=== PATIENT | male | born 1960 | race Caucasian/White ===

== ENCOUNTER 2020-05-11 05:59 | Emergency (ER) | payer MEDICAID, SELFPAY ==
[2020-05-11 06:00] VITALS: BP 198/112; PULSE 119; RESP 18; TEMP 36.1; O2SAT 97; BMI 31.7
--- NOTE | 2020-05-11 06:01 | ED.VIS.GEN ---
History of Present Illness Chief Complaint: Dental Informant: Patient Narrative: 1-year-old male presenting with left-sided dental pain as well as some slight swelling on the left mandible. He states that he has had dental pain on and off but the swelling just started today. He is unable to sleep. He has no difficulty swallowing. He has no difficulty breathing. He states his tongue is not swollen. He denies fever or chills. He said he had this happen to him in the past and had his teeth removed in the emergency room. Past Medical History - Allergies and Home Meds Allergies/Adverse Reactions: Allergies No Known Allergies Allergy (Verified 05/18/16 03:46) Primary Care Physician: NOT,DEFINED [Primary Care Provider] - Prior records reviewed: Yes Lives: Alone Smoking Status: Current every day smoker Drugs: None Review of Systems General: Denies: Chills, Fever Eyes: Denies: Visual changes - bilaterally, Diplopia ENT: Reports: - - Left sided dental pain on the lower mandible with slight facial swelling Respiratory: Denies: Dyspnea, Cough Gastrointestinal: Denies: Abdominal pain, Nausea Musculoskeletal: Denies: Myalgias, Arthralgias Skin: Denies: Rash Neurological: Denies: Headache, Weakness Psych: Denies: Depression Physical Exam General: No Acute Distress Head: - ENT: - - Tenderness to palpation over the left mandible. There is no fluctuant mass. Patient is partially edentulous with multiple dental caries of the remaining teeth. There is no gingival abscess.. Negative for: Nasal congestion, Sinus tenderness Cardiovascular: Negative for: Regular rate Respiratory: Negative for: No distress Skin: - - Sided facial swelling around the left mandible without cellulitis Neurological: Alert, Oriented x3 Psychological: Normal affect Diagnostic/Tx/Re-eval - Medical Decision Making Presents with dental pain and slight left-sided facial swelling. He has no systemic signs or symptoms. There is no sublingual edema. Tongue is not swollen. He has no airway issues or difficulty swallowing. I will start him on Augmentin. He was given a first dose in the ED as well as Decadron and oxycodone. Patient is given return precautions and encouraged to follow-up with a dental professional. Impression: 1. Dental abscess 2. Multiple dental caries 3. Left-sided mandibular swelling ED Disposition - Plan for ED Patient: Instructions: ED CAVITY Dental, ED ABSCESS DENTAL Prescriptions: Amoxicillin/Potassium Clav [Augmentin 875-125 Tablet] 1 ea PO BID #20 tab Prescription Printed Naproxen [Naprosyn] 500 mg PO BID #20 tab Prescription Printed Oxycodone HCl/Acetaminophen [Percocet 5/325] 1 tab PO Q6H PRN PRN 3 Days #12 tab PRN Reason: pain Prescription Printed Referrals: NOT,DEFINED [Primary Care Provider] -
[2020-05-11] MEDS: oxyCODONE 5 MG Tablet PO (06:16)
[2020-05-11] MEDS: dexAMETHasone 10 MG/ML Vial PO.IVFORM (06:17)
[2020-05-11] MEDS: Amox/Clavulanate 875 MG Tablet PO (06:17)
[2020-05-11 06:37] VITALS: BP 178/100
== END 2020-05-11 06:38 | disposition home or self-care (01) ==
LOC: ED 06:26
PROVIDERS: Emergency Provider Student in an Organized Health Care Education/Training Program
DX: K04.7 Periapical abscess without sinus (principal); K02.9 Dental caries, unspecified; F17.200 Nicotine dependence, unspecified, uncomplicated
CPT/HCPCS: 99282

== ENCOUNTER 2022-08-31 07:48 | Inpatient (IN) | payer MEDICAID, SELFPAY ==
[2022-08-31] VITALS (14 sets, daily range): BP systolic 107–149; BP diastolic 75–106; PULSE 90–131; RESP 17–28; TEMP 36.2–36.7; O2SAT 92–98; BMI 30.4; BMI 26.9
--- NOTE | 2022-08-31 09:07 | EKG12_ITS ---
Test Reason : Blood Pressure : / mmHG Vent. Rate : 118 BPM Atrial Rate : 119 BPM P-R Int : 000 ms QRS Dur : 080 ms QT Int : 320 ms P-R-T Axes : 000 022 043 degrees QTc Int : 448 ms Atrial fibrillation Septal infarct , age undetermined Abnormal ECG Confirmed by RONIT ALVAREZ MD ([id number]), development editor CHELA WHITT ([id number]) on 09/05/2022 11:44:27 AM Referred By: ROSALINA Confirmed By:RONIT ALVAREZ MD
--- NOTE | 2022-08-31 09:09 | EDS_ITS ---
HPI History of Present Illness Chief Complaint: Shortness of Breath Informant: patient Onset/Context/Timing Onset: Weeks (2 weeks) Context: Gradual Onset Current Severity: Mild Maximum Severity: Moderate Narrative Narrative: Patient presents with 2-week history of shortness of breath. He reports mild cough with clear to yellow-colored sputum production. No fever or chills. No chest pain. He states last night he was unable to lay down to sleep and that is what caused him to come in today. He states he has not seen a doctor in about 2 0 years. He is a smoker but is never been diagnosed with asthma or COPD. PFSH PFSH Medical History no medical history no medical history Home Medications NK 08/31/22 [History Last Taken Unknown] Allergy/AdvReac Type Severity Reaction Status Date / Time No Known Allergies Allergy Verified 08/31/22 07:50 Surgical History no surgical history Social History Smoking Status: Current every day smoker tobacco type: cigarettes ROS ROS ED Constitutional Constitutional ED: Denies chills or fever(s) Eyes Eyes: Denies change in vision or discharge from eye(s) ENT ENT ED: Denies discharge from eye(s), rhinorrhea or sore throat Cardiovascular Cardiovascular: Denies chest pain or palpitations Respiratory/Chest Respiratory/Chest: Reports cough, dyspnea and sputum Gastrointestinal Gastrointestinal: Denies abdominal pain, diarrhea, nausea or vomiting Genitourinary Genitourinary ED: Denies dysuria Musculoskeletal Musculoskeletal: Denies back pain or extremity pain Integumentary Denies Abrasions or rash Neurologic Neurologic: Denies headache(s) or weakness Allergic/Immunologic Allergic/Immunologic ED: Denies lip swelling or urticaria EXAM Physical Exam Const Vital Signs: 08/31/22 07:48 08/31/22 09:19 08/31/22 09:19 Temperature 97.1 F L Temperature Source Temporal Pulse Rate 128 H 131 H Respiratory Rate 18 28 H Respiratory Effort Short of Breath Labored Respiratory Pattern Tachypnea Blood Pressure 149/106 H Blood Pressure Mean 120 Pulse Ox 92 93 Oxygen Delivery Method Room Air Room Air Room Air Positive well nourished and well developed General Appearance ED: well developed HEENT Reports normocephalic and head/scalp atraumatic Eyes PERRL and EOMs intact bilaterally Neck supple Chest Wall inspection of chest normal and palpation of chest normal Resp normal respiratory effort and clear to auscultation bilaterally Cardio Rate: tachycardic Rhythm: abnormal rhythm irregularly irregular GI normal to inspection, nondistended, normoactive bowel sounds Palpation: soft Extremity normal to inspection Neuro oriented x3 and no sensory deficits noted Sensorium / Orientation: alert Motor Exam: strength 5/5 throughout Psych mental status grossly normal Skin no rashes or lesions noted MDM MDM MDM Narrative Medical decision making narrative: EKG, chest x-ray, lab work obtained. Lab Data Attestation: I reviewed the patient's lab results. Labs: Laboratory Results - last 24 hr 08/31/22 08/31/22 08/31/22 09:20 09:20 09:20 WBC 11.3 H RBC 4.60 Hgb 14.5 Hct 44.5 MCV 96.7 H MCH 31.5 MCHC 32.6 RDW Std Deviation 49.1 H RDW Coeff of Doron 13.8 Plt Count 222 MPV 10.0 Immature Gran % (Auto) 0.300 Neut % (Auto) 54.6 Lymph % (Auto) 31.7 [place] % (Auto) 10.4 H Eos % (Auto) 2.1 Baso % (Auto) 0.9 Absolute Neuts (auto) 6.2 Absolute Lymphs (auto) 3.59 Nucleated RBC % 0 Sodium 140 Potassium 4.0 Chloride 110 H Carbon Dioxide 23.0 Anion Gap 7 BUN 15 Creatinine 0.84 Estim Creat Clear Calc 87.08 Est GFR (MDRD) Af Amer 119 Est GFR (MDRD) Non-Af 98 BUN/Creatinine Ratio 17.9 Glucose 99 Calcium 8.9 Troponin I High Sens 31 B-Natriuretic Peptide 130.0 H TSH < 0.01 L Radiography Chest X-Ray - ED: 1 View, Read by ED Physician and CHF Diagnostic Testing: Clinical Impression(s) from Imaging Studies Chest X-Ray 08/31/22 09:30 IMPRESSION: Findings suspicious for pulmonary edema possible trace left effusion and atelectasis. Electronically Signed: Kristen Dunn MD at 9:44 EST , EKG Initial EKG: Attestation: I personally reviewed and interpreted this EKG as follows: Interpretation: Atrial Fibrillation (Atrial fibrillation with a ventricular rate of 118.) Treatment and Re-Evaluation Narrative: EKG obtained reveals atrial fibrillation. Patient has no known history of A. fib. Heart rate is increased into the 140s. He is given 10 mg of IV Cardizem. CBC reveals a white count 11.3. Chemistry studies unremarkable with normal renal function. Troponin is 31, BNP is 130, TSH is less than 0.01. T3 and free T4 have been added. Patient has been given a dose of Lasix. Heart rate remains between 118 and 135. He is given 20 mg of Cardizem at this time as well. Test results are discussed with the patient. I advised him that we will need to admit him to the hospital to get his symptoms improved. I will speak with the hospitalist. I will give him a dose of Lovenox at this time. Discharge Plan Triage Chief Complaint: Shortness of Breath ED Provider: Joyce Marcano Dx/Rx/DC Orders Clinical Impression: Atrial fibrillation with rapid ventricular response, New onset a-fib, Hyperthyroidism determined by thyroid function test, CHF (congestive heart failure) Prescriptions: No Action NK Primary Care Provider: Care Physician,No Primary Referrals: Care Physician,No Primary [Primary Care Provider] - Disposition Disposition: Acute Care Hospital [facility]
--- NOTE | 2022-08-31 09:30 | RAD_ITS ---
STUDY: X-RAY CHEST REASON FOR EXAM: Male, 62 years old. Sob TECHNIQUE: Single AP portable view of the chest. COMPARISON: None. FINDINGS: The interstitial markings are mildly prominent. There is a pattern of fine linear interstitial markings in the right greater than left lung periphery. There is blunting of the left costophrenic angle. There is no demonstrated pleural abnormality. Normal size heart. Normal mediastinum and corazon. Normal visualized pulmonary arteries. Normal visualized aortic arch and descending thoracic aorta. There are diffuse degenerative changes of the visualized thoracic spine. Normal visualized ribs, clavicles, and shoulders. There is no demonstrated abnormality of the visualized soft tissue structures of the upper abdomen. RAD/Chest 1 View (Portable) IMPRESSION: Findings suspicious for pulmonary edema possible trace left effusion and atelectasis. Electronically Signed: Kristen Dunn MD at 9:44 EST ,
[2022-08-31 09:31] LABS: Absolute Lymphocyte Count 3.59 X10^3/uL (0.83-4.51); Absolute Neutrophil Count 6.2 X10^3/uL (2.0-7.7); Basophil% 0.9 % (0-1); Eosinophil# 0.24 X10^3/uL; Eosinophils% 2.1 % (0-5); Hematocrit 44.5 % (40-54); Hemoglobin 14.5 g/dL (13.0-16.5); Lymphocyte # 3.59 X10^3/ul (0.83-4.51); Lymphocyte % 31.7 % (19-41); Mean Corp Hgb Conc 32.6 g/dL (32-36); Mean Corpuscular Hgb 31.5 pg (27.0-32.0); Mean Corpuscular Volume 96.7 fL (80-94); Monocyte# 1.18 X10^3/uL; Monocyte% 10.4 % (0-10); NRBC Flagged by Analyzer 0 % (0-5); Neutrophil # 6.19 X10^3/uL (2.7-7.7); Neutrophil % 54.6 % (47-70); Platelet Count 222 K/mm3 (150-450); RBC Distribution Width CV 13.8 % (11.6-14.6); RBC Distribution Width SD 49.1 fl (35.1-43.9); White Blood Count 11.3 K/mm3 (4.4-11.0)
[2022-08-31] MEDS: Furosemide 40 MG/4 ML Vial IV ×2 (09:53→18:19)
[2022-08-31] MEDS: dilTIAZem 25 MG/5 ML Vial 10 MG IV BOLUS (09:53)
[2022-08-31 09:58] LABS: Anion Gap 7 (5-15); BUN 15 mg/dL (7-18); BUN/Creat Ratio 17.9 RATIO (10-20); Calcium,Total 8.9 mg/dL (8.5-10.1); Chloride 110 mmol/L (98-107); Creatinine, Serum 0.84 mg/dL (0.70-1.30); EST Glomerular Filtration Rate 98 mL/min (>60); Est Glom Filt Rate - Afr Amer 119 mL/min (>60); Estimated Creatinine Clearance 87.08 ml/min; Glucose 99 mg/dL (74-106); Sodium Level 140 mmol/L (136-145); Thyroid Stim Hormone (TSH) < 0.01 uIU/mL (0.358-3.74); Troponin-I HS 31 pg/mL (3.0-78.0)
[2022-08-31] MEDS: dilTIAZem 25 MG/5 ML Vial 20 MG IV BOLUS (10:14)
[2022-08-31] MEDS: Enoxaparin 100 MG/ML Syringe 90 MG SC (10:24)
--- NOTE | 2022-08-31 10:36 | PCM.HP.STD ---
HPI - General General Date of Admission: 08/31/22 Date of Service: 08/31/22 Chief Complaint: Shortness of breath -few days HPI Narrative JOANNE ZHU, is a 62 M who presents with the above. Patient denies any significant past medical history. He is a chronic smoker, has not seen a doctor in more than 20 years. He comes in with complaints of shortness of breath, orthopnea and PND. He denied leg swelling or weight gain or weight loss. He denied any fever or chills or upper respiratory symptoms. He also denied any palpitations or chest pain. In the emergency room, his blood pressure was 149/106, heart rate was 128, respiratory rate 18, temperature 97.1, oxygen sats 92% on room air. WBC count is 11.3, hemoglobin 14.5, platelet count 222, sodium is 140, potassium 4.0, chloride is 110, bicarbonate 23, BUN 15, creatinine 0.84, BNP up is 130, TSH 0.01, free T4 2.89, total T3 is 2.20. Chest X-ray is suspicious for pulmonary edema, trace left effusion and atelectasis. [facility] Medical History no medical history Home Medications NK 08/31/22 [History Last Taken Unknown] Allergy/AdvReac Type Severity Reaction Status Date / Time No Known Allergies Allergy Verified 08/31/22 07:50 Family History (Updated 08/31/22 @ 15:[address] Laina Mayes MD) Mother CVA (cerebral vascular accident) Father CAD (coronary artery disease) Myocardial infarction Sudden cardiac Surgical History no surgical history no surgical history Social History (Updated 08/31/22 @ 15:[address] Laina Mayes MD) household members: significant other Smoking Status: Current every day smoker tobacco type: cigarettes Electronic Cigarette Use: with nicotine alcohol intake: never substance use type: does not use ROS ROS Narrative Constitutional: Denies: Anorexia, Chills, Fever, Night Sweats, Weight Change Eyes: Denies: Blurred vision, Cataracts, Conjunctivae Inflammation, Pain, Redness, Vision Change HEENT: Denies: Difficulty Hearing, Difficulty Swallowing, Head Aches, Hearing Changes, Sinus Congestion, Sinus Drainage Cardiovascular: See HPI Respiratory: See HPI Gastrointestinal: Denies: Abdominal Pain, Nausea, Vomiting Genitourinary: Denies: Dysuria Musculoskeletal: Denies: Joint Pain, Joint stiffness, Joint swelling, Joint Tenderness Skin: Denies: Rash, Wounds Neurological: Denies: Numbness, Tingling, Focal weakness Vital Signs Vital Signs Vital Signs: 08/31/22 07:48 08/31/22 09:19 08/31/22 09:19 Temperature 97.1 F L Temperature Source Temporal Pulse Rate 128 H 131 H Respiratory Rate 18 28 H Respiratory Effort Short of Breath Labored Respiratory Pattern Tachypnea Blood Pressure 149/106 H Blood Pressure Mean 120 Pulse Ox 92 93 Oxygen Delivery Method Room Air Room Air Room Air Weight Weight: 90.718 kg Body Mass Index (BMI) 30.4 Physical Exam Narrative Physical exam: General: Alert, Oriented x3, Cooperative, on 2 L of oxygen HEENT: Atraumatic Oral: Moist Mucosa Neck: Supple Lungs: Diminished to auscultation Cardiovascular: HS I+II, irregular, no murmurs Abdomen: Bowel Sounds Present, Soft, Non Tender Extremities: No edema, no bilateral edema, clubbing of his fingers Skin: No rashes, No breakdown Neurological: Grossly intact Psych/Mental Status: Appropriate Results Lab / Micro Data Result Diagrams: 08/31/22 09:20 08/31/22 09:20 Labs: Laboratory Results - last 24 hr 08/31/22 09:20: WBC 11.3 H, RBC 4.60, Hgb 14.5, Hct 44.5, MCV 96.7 H, MCH 31.5, MCHC 32.6, RDW Std Deviation 49.1 H, RDW Coeff of Doron 13.8, Plt Count 222, MPV 10.0, Immature Gran % (Auto) 0.300, Neut % (Auto) 54.6, Lymph % (Auto) 31.7, [place] % (Auto) 10.4 H, Eos % (Auto) 2.1, Baso % (Auto) 0.9, Absolute Neuts (auto) 6.2, Absolute Lymphs (auto) 3.59, Nucleated RBC % 0 08/31/22 09:20: Sodium 140, Potassium 4.0, Chloride 110 H, Carbon Dioxide 23.0, Anion Gap 7, BUN 15, Creatinine 0.84, Estim Creat Clear Calc 87.08, Est GFR (MDRD) Af Amer 119, Est GFR (MDRD) Non-Af 98, BUN/Creatinine Ratio 17.9, Glucose 99, Calcium 8.9, Troponin I High Sens 31, TSH < 0.01 L 08/31/22 09:20: B-Natriuretic Peptide 130.0 H Radiology Impression Chest X-Ray 08/31/22 09:30 IMPRESSION: Findings suspicious for pulmonary edema possible trace left effusion and atelectasis. Electronically Signed: Kristen Dunn MD at 9:44 EST , Assessment & Plan Assessment/Plan (1) Atrial fibrillation with rapid ventricular response: (2) New onset a-fib: (3) Hyperthyroidism determined by thyroid function test: PLAN: Plan 1. A. fib with RVR secondary to hyperthyroidism, newly diagnosed [id number] score is 0 Patient received Cardizem bolus, will continue metoprolol 50 mg p.o. twice daily, aspirin 81 mg 2. Acute hypoxia secondary to probable acute CHF Patient is on 2 L of oxygen Chest x-ray shows pulmonary edema Continue on Lasix 40 mg IV twice daily, encourage use of incentive spirometer 3. Hyperthyroidism, newly diagnosed, patient presented TSH less than 0.01, elevated free T4 and free T3 This is a cause of his atrial fibrillation; discussed with endocrinology, will start patient on methimazole 40 mg p.o. daily Patient to follow-up with endocrinology in the outpatient 4. Nicotine dependence, continue on replacement 5. DVT prophylaxis?Lovenox subcu Charges/Coding Visit Charges Inpatient E&M: 00319 Subs Hosp L3
[2022-08-31 10:51] LABS: T4 Free Direct 2.89 ng/dL (0.76-1.46)
--- NOTE | 2022-08-31 11:41 | ECHOD_ITS ---
Reason For Study: afib Procedure This was a 2D Doppler, Color Flow transthoracic echocardiogram. Exam performed portable in patient room. Left Ventricle Normal LV size. The estimated ejection fraction is 45 %. No regional wall motion abnormalities noted. Right Ventricle Normal RV size. Normal systolic function. Atria Normal left atrium. Normal right atrium. Mitral Valve There is moderate mitral annular calcification. Mild-Moderate (1-2+) eccentric mitral valve insufficiency. Tricuspid Valve Normal tricuspid valve. Mild (1+) tricuspid valve insufficiency. Pulmonary artery systolic pressure is 26 mmHg. Aortic Valve Trisinus/trileaflet aortic valve. Great Vessels Normal aortic root. The pulmonary artery is normal size. Normal inferior vena cava. Pericardium/Pleural No pericardial effusion. Moderate size left pleural effusion. MMode/2D Measurements & Calculations LVIDd: 4.2 cm IVSd: 1.4 cm Ao root diam: 3.5 cm LVIDs: 3.6 cm LVPWd: 1.0 cm RVDd: 3.7 cm FS: 14.5 % LAV(MOD-bp): 71.0 ml LVAd ap4: 25.9 cm2 SV(MOD-sp4): 36.9 ml LAV(MOD-bp) Indexed: 34.7 ml/m2 LVLd ap4: 7.5 cm LAV(MOD-sp2): 98.0 ml EDV(MOD-sp4): 76.3 ml LAV(MOD-sp4): 51.0 ml EDV(sp4-el): 75.4 ml LVAs ap4: 16.8 cm2 LVLs ap4: 6.3 cm ESV(MOD-sp4): 39.4 ml ESV(sp4-el): 38.2 ml EF(MOD-sp4): 48.4 % EF(sp4-el): 49.4 % SV(sp4-el): 37.2 ml LA dimension(2D): 4.6 cm LA A4 area: 20.0 cm2 RA A4 area: 21.6 cm2 Doppler Measurements & Calculations MV E max [place]: 116.8 cm/sec MV V2 max: 134.5 cm/sec Ao V2 max: 116.3 cm/sec MV max P.3 mmHg Ao max P.6 mmHg MV V2 mean: 89.6 cm/sec Ao V2 mean: 74.3 cm/sec MV mean P.7 mmHg Ao mean P.7 mmHg MV V2 VTI: 25.2 cm Ao V2 VTI: 16.1 cm LV V1 max: 109.9 cm/sec MR max [place]: 504.0 cm/sec PA V2 max: 87.6 cm/sec LV V1 max P.0 mmHg MR max P.6 mmHg PA V2 mean: 60.0 cm/sec LV V1 mean P.6 mmHg LV V1 mean: 73.2 cm/sec LV V1 VTI: 14.8 cm TR max [place]: 238.7 cm/sec TR max P.8 mmHg ECHO/Echo Complete Interpretation Summary Normal LV size. The estimated ejection fraction is 45 %. There is moderate mitral annular calcification. Mild-Moderate (1-2+) eccentric mitral valve insufficiency. Pulmonary artery systolic pressure is 26 mmHg. The global longitudinal strain is moderately abnormal. The global longitudinal strain = -14.2% (abnormal). Ordering Physician: Laina Mayes Referring Physician: RADHA PCP Performed By: Jaymie Workman RCS
[2022-08-31 12:05] LABS: Magnesium 2.1 mg/dL (1.6-2.6)
[2022-08-31] MEDS: Metoprolol Tartrate 50 MG Tablet PO ×2 (13:06→21:40)
[2022-08-31] MEDS: Methimazole 5 MG Tablet 40 MG PO (15:51)
[2022-08-31] MEDS: 0.9% Saline Lock 10 ML Syringe IV (18:19)
--- NOTE | 2022-08-31 23:04 | NURSING ---
This RN viewed charting
[2022-09-01 03:10] VITALS: BP 103/72; PULSE 95; RESP 18; TEMP 36.7; O2SAT 98
[2022-09-01 03:36] VITALS: PULSE 94
[2022-09-01 05:41] LABS: Absolute Lymphocyte Count 5.37 X10^3/uL (0.83-4.51); Absolute Neutrophil Count 5.4 X10^3/uL (2.0-7.7); Basophil# 0.13 X10^3/uL; Eosinophil# 0.25 X10^3/uL; Hematocrit 47.2 % (40-54); Hemoglobin 15.6 g/dL (13.0-16.5); Lymphocyte # 5.37 X10^3/ul (0.83-4.51); Lymphocyte % 42.8 % (19-41); Mean Corp Hgb Conc 33.1 g/dL (32-36); Mean Corpuscular Hgb 32.2 pg (27.0-32.0); Mean Corpuscular Volume 97.5 fL (80-94); Mean Platelet Vol. 10.3 fl (6.2-12.0); Monocyte% 11.2 % (0-10); NRBC Flagged by Analyzer 0 % (0-5); Neutrophil # 5.37 X10^3/uL (2.7-7.7); Neutrophil % 42.8 % (47-70); POSITIVE DIFFERENTIAL YES; POSITIVE MORPHOLOGY YES; Platelet Count 255 K/mm3 (150-450); RBC Distribution Width CV 13.6 % (11.6-14.6); RBC Distribution Width SD 49.1 fl (35.1-43.9); Red Blood Count 4.84 M/mm3 (4.6-6.2); White Blood Count 12.5 K/mm3 (4.4-11.0)
[2022-09-01 06:12] LABS: Differential Indicated SCAN CRITERIA MET
[2022-09-01 06:26] LABS: ALB/GLOB Ratio 0.6 RATIO (0.9-2.4); AST(SGOT) 14 U/L (15-37); Alanine Aminotransfer ALT/SGPT 17 U/L (16-61); Alkaline Phosphatase 176 U/L (45-117); Anion Gap 5 (5-15); BUN 20 mg/dL (7-18); BUN/Creat Ratio 18.2 RATIO (10-20); Calcium,Total 9.4 mg/dL (8.5-10.1); Chloride 105 mmol/L (98-107); EST Glomerular Filtration Rate 72 mL/min (>60); Est Glom Filt Rate - Afr Amer 87 mL/min (>60); Globulin 4.9 g/dL (2.2-4.2); Glucose 88 mg/dL (74-106); Potassium 4.1 mmol/L (3.5-5.1); Protein, Total 7.9 g/dL (6.4-8.2); Sodium Level 140 mmol/L (136-145)
[2022-09-01 06:28] LABS: Differential Comment SCANNED; Reactive Lymphocyte 1+
[2022-09-01 07:00] VITALS: PULSE 94
[2022-09-01 10:00] VITALS: BP 118/81; PULSE 95; RESP 16; TEMP 36.6; O2SAT 97
[2022-09-01 10:02] VITALS: O2SAT 96; O2SAT 97
--- NOTE | 2022-09-01 10:58 | DS.PCM_ITS ---
Providers Date of Admission: 08/31/22 Date of Discharge: 09/01/22 Primary Care Physician: No Primary Care Phys Reason For Visit: AFIB WITH RVR Diagnosis Discharge Diagnosis (1) Atrial fibrillation with rapid ventricular response: Status: Acute Code(s): I48.91 - Unspecified atrial fibrillation (2) New onset a-fib: Status: Acute Code(s): I48.91 - Unspecified atrial fibrillation (3) Hyperthyroidism determined by thyroid function test: Status: Acute Code(s): E05.90 - Thyrotoxicosis, unspecified without thyrotoxic crisis or storm; R94.6 - Abnormal results of thyroid function studies Plan 1. A. fib with RVR secondary to hyperthyroidism 2. Acute hypoxia secondary to probable acute CHF 3. Hyperthyroidism, newly diagnosed 4. Nicotine dependence Medications at Discharge Home Medications aspirin 81 mg chewable tablet 81 mg PO BREAKFAST 30 days #30 tabs 09/01/22 furosemide 20 mg tablet (Lasix) 20 mg PO DAILY 30 days #30 tabs 09/01/22 methimazole 5 mg tablet 40 mg PO DAILY 6 days #48 tabs 09/01/22 metoprolol tartrate 50 mg tablet 50 mg PO BID 30 days #60 tabs 09/01/22 nicotine 21 mg/24 hr daily transdermal patch 21 mg transdermal DAILY 14 days #14 ea 09/01/22 Hospital Course Operations None Procedures 2-D Echocardiogram Summary of Care Provided Minutes Spent on Discharge: 35 Hospital Course: 62 M with no significant past medical history.? He has not seen a doctor in more than 10 years. He is a chronic smoker. Patient comes in with complaints of shortness of breath, orthopnea and PND.? He denied leg swelling or weight gain or weight loss.? He denied any fever or chills or upper respiratory symptoms.? He also denied any palpitations or chest pain. In the emergency room, his blood pressure was 149/106, heart rate was 128, respiratory rate 18, temperature 97.1, oxygen sats 92% on room air.? EKG showed A. fib with RVR. WBC count is 11.3, hemoglobin 14.5, platelet count 222, sodium is 140, potassium 4.0, chloride is 110, bicarbonate 23, BUN 15, creatinine 0.84, BNP up is 130, TSH 0.01, free T4 2.89, total T3 is 2.20. Chest X-ray is suspicious for pulmonary edema, trace left effusion and atelectasis. Patient was admitted to the progressive care unit and managed as acute A. fib with RVR, acute CHF, unclear EF, hyperthyroidism. Patient received Cardizem bolus in the ED and was continue metoprolol 50 mg p.o. twice daily. His [id number] score was 0. He was kept on aspirin. Patient also did receive Lasix as he was on 2 L of oxygen. He improved and was off oxygen at time of discharge. Patient was also started on methimazole 40 mg daily. Discussed with endocrinology, patient will follow-up with Dr. Osorio on Friday 08/10 8. He was recommended to keep that appointment. He was given a list of primary care doctors to choose from at time of discharge. He was also recommended to follow-up with cardiology within 2 weeks. He was strongly recommended to stop smoking. He was given nicotine patches at discharge. Physical Exam Narrative Physical exam: General: Alert, Oriented x3, Cooperative, on 2 L of oxygen HEENT: Atraumatic Oral: Moist Mucosa Neck: Supple Lungs: Diminished to auscultation Cardiovascular: HS I+II, irregular, no murmurs Abdomen: Bowel Sounds Present, Soft, Non Tender Extremities: No edema, no bilateral edema, clubbing of his fingers Skin: No rashes, No breakdown Neurological: Grossly intact Psych/Mental Status: Appropriate Weight / BMI Weight Weight: 80.4 kg Body Mass Index (BMI) 26.9 ABG / Lab / Microbiology Data Result Diagrams: 09/01/22 05:05 09/01/22 05:05 Laboratory: Laboratory Results - last 24 hr 08/31/22 10:15: Magnesium 2.1 09/01/22 05:05: WBC 12.5 H, RBC 4.84, Hgb 15.6, Hct 47.2, MCV 97.5 H, MCH 32.2 H , MCHC 33.1, RDW Std Deviation 49.1 H, RDW Coeff of [place]on 13.6, Plt Count 255, MPV 10.3, Immature Gran % (Auto) 0.200, Neut % (Auto) 42.8 L, Lymph % (Auto) 42.8 H, [place] % (Auto) 11.2 H, Eos % (Auto) 2.0, Baso % (Auto) 1.0, Absolute Neuts (auto) 5.4, Absolute Lymphs (auto) 5.37 H, Nucleated RBC % 0, Differential Comment SCANNED, Reactive Lymphocytes 1+ 09/01/22 05:05: Sodium 140, Potassium 4.1, Chloride 105, Carbon Dioxide 30.0, Anion Gap 5, BUN 20 H, Creatinine 1.10, Estim Creat Clear Calc 66.50, Est GFR (MDRD) Af Amer 87, Est GFR (MDRD) Non-Af 72, BUN/Creatinine Ratio 18.2, Glucose 88, Calcium 9.4, Total Bilirubin 2.00 H, AST 14 L, ALT 17, Alkaline Phosphatase 176 H, Total Protein 7.9, Albumin 3.0 L, Globulin 4.9 H, Albumin/Globulin Ratio 0.6 L Radiography Diagnostic Testing: Radiology Impression Echocardiogram 08/31/22 11:41 Interpretation Summary Normal LV size. The estimated ejection fraction is 45 %. There is moderate mitral annular calcification. Mild-Moderate (1-2+) eccentric mitral valve insufficiency. Pulmonary artery systolic pressure is 26 mmHg. The global longitudinal strain is moderately abnormal. The global longitudinal strain = -14.2% (abnormal). Ordering Physician: Laina Mayes Referring Physician: MONICA PCP Performed By: Jaymie Workman RCS D/C Instructions Discharge Diet: 2000 mg Sodium Diet Meaningful Use Info Meaningful Use Diagnoses (Choose all that apply): None applicable Discharge Plan Admission Admit Date/Time: 08/31/22 10:27 Primary Reason for Your Visit: Afib with RVR/Hyperthyroidism Attending Provider: Laina Mayes Primary Care Provider: Care Physician,Monica Primary Instructions Additional Instructions / Restrictions: Take note of your medications Follow-up with a primary care doctor within 1 week. Follow-up with endocrinology as scheduled You are strongly advised to quit smoking. Continue on a low sodium diet Discharge Orders/Prescriptions Prescriptions: New metoprolol tartrate 50 mg Tablet 50 mg PO BID 30 Days Qty: 60 0RF nicotine 21 mg/24 hr Patch 24 Hour 21 mg transdermal DAILY 14 Days Qty: 14 0RF methimazole 5 mg Tablet 40 mg PO DAILY 6 Days Qty: 48 0RF aspirin 81 mg Tablet,Chewable 81 mg PO BREAKFAST 30 Days Qty: 30 0RF furosemide [Lasix] 20 mg tablet 20 mg PO DAILY 30 Days Qty: 30 0RF Referrals / Follow Up: Ronen Cason MD [Med Staff - Active Staff] - Within 2 Weeks Dejuan Osorio MD [Med Staff - Courtesy Staff] - 09/05/22 3:00 pm Care Physician,No Primary [Primary Care Provider] - Disposition Disposition (needs filled in before D/C Order can be placed): Home, Self Care Charges/Coding Visit Charges Inpatient E&M: 81155 Disch Hosp
[2022-09-01] MEDS: Aspirin 81 MG TAB.CHEW PO (11:09)
[2022-09-01] MEDS: FLU VACC QS2022-23(6MOS UP)/PF 60 MCG/0.5 ML SYRINGE IM (11:09)
[2022-09-01 11:11] VITALS: BP 118/81; PULSE 95
[2022-09-01] MEDS: Metoprolol Tartrate 50 MG Tablet PO (11:11)
[2022-09-01] MEDS: Enoxaparin 40 MG/0.4 ML Syringe SC (11:11)
[2022-09-01] MEDS: Methimazole 5 MG Tablet 40 MG PO (11:12)
== END 2022-09-01 12:55 | disposition home or self-care (01) | DRG 201 ==
LOC: ED 10:16 → PCU 10:50
PROVIDERS: Admitting Provider Internal Medicine; Emergency Provider Emergency Medicine; Visit Provider Internal Medicine
DX: I48.91 Unspecified atrial fibrillation (principal); I50.21 Acute systolic (congestive) heart failure; E05.90 Thyrotoxicosis, unspecified without thyrotoxic crisis or storm; F17.210 Nicotine dependence, cigarettes, uncomplicated; R09.02 Hypoxemia; Z23 Encounter for immunization; Z79.82 Long term (current) use of aspirin
CPT/HCPCS: 36415; 71045; 80048; 80053; 83735; 83880; 84439; 84443; 84480; 84484; 85025; 93005; 93306; 97802; 99285; 99406; 90686; A4216; J1940

== ENCOUNTER 2022-11-12 19:03 | Emergency (ER) | payer MEDICAID, SELFPAY ==
[2022-11-12 19:04] VITALS: BP 142/106; PULSE 80; RESP 14; TEMP 36.2; O2SAT 97; BMI 29.6
--- NOTE | 2022-11-12 19:25 | EKG12_ITS ---
Test Reason : HEART PALP Blood Pressure : / mmHG Vent. Rate : 128 BPM Atrial Rate : 000 BPM P-R Int : 000 ms QRS Dur : 074 ms QT Int : 298 ms P-R-T Axes : 000 011 059 degrees QTc Int : 435 ms Atrial fibrillation with rapid ventricular response Septal infarct , age undetermined Abnormal ECG Confirmed by ANTONIO ALMEIDA, RONIT ([id number]), photography editor CHELA WHITT ([id number]) on 11/14/2022 1:14:33 PM Referred By: BB Confirmed By:RONIT ALVAREZ MD
--- NOTE | 2022-11-12 19:25 | EDS_ITS ---
HPI History of Present Illness Chief Complaint: Palpitations Informant: patient Onset/Context/Timing Onset: Yesterday Context: Sudden Onset Timing: Continuous Quality: Short of breath Current Severity: Mild Maximum Severity: Moderate Worsened by: Exertion Relieved by: Remaining still Associated Symptoms Associated Symptoms: No chest pain, palpitations, lightheadedness or near syncope/syncope Narrative Narrative: Patient presents with same symptoms that he had a couple months ago when he was diagnosed with A. fib. He does not feel his heart racing or skipping. He was admitted to the hospital and started on 3 or 4 medications, he states he ran out of all of those 1 week ago, and admits that he has followed up with no one. He continues to smoke. He does not use any other drugs or alcohol. He has had no fevers or chills but he has a persistent productive cough. [facility] Medical History (Updated 11/12/22 @ 22:[address] Vicente Hollins MD) Hyperthyroidism determined by thyroid function test New onset a-fib Home Medications aspirin 81 mg chewable tablet 81 mg PO BREAKFAST 30 days #30 tabs 09/01/22 [Rx Last Taken Unknown] nicotine 21 mg/24 hr daily transdermal patch 21 mg transdermal DAILY 14 days #14 ea 09/01/22 [Rx Last Taken Unknown] furosemide 20 mg tablet (Lasix) 20 mg PO DAILY 30 days #30 tabs 11/12/22 [Rx Last Taken Unknown] metoprolol tartrate 50 mg tablet 50 mg PO BID 30 days #60 tabs 11/12/22 [Rx Last Taken Unknown] Allergy/AdvReac Type Severity Reaction Status Date / Time No Known Allergies Allergy Verified 11/12/22 19:04 Family History (Updated 08/31/22 @ 15:[address] Laina Mayes MD) Mother CVA (cerebral vascular accident) Father CAD (coronary artery disease) Myocardial infarction Sudden cardiac Social History household members: significant other Smoking Status: Current every day smoker tobacco type: cigarettes Electronic Cigarette Use: with nicotine alcohol intake: never substance use type: does not use ROS ROS ED Constitutional Constitutional ED: Denies chills or fever(s) Eyes Eyes: Denies change in vision or diplopia ENT ENT ED: Denies rhinorrhea or sore throat Cardiovascular Cardiovascular: Denies chest pain, leg edema, lightheadedness, orthopnea, palpitations or paroxysmal nocturnal dyspnea Respiratory/Chest Respiratory/Chest: Reports cough, dyspnea and sputum; Denies orthopnea or paroxysmal nocturnal dyspnea Gastrointestinal Gastrointestinal: Denies abdominal pain, diarrhea, nausea or vomiting Genitourinary Genitourinary ED: Denies dysuria or hematuria Musculoskeletal Musculoskeletal: Denies back pain or neck pain Integumentary Denies abscess or rash Neurologic Neurologic: Denies headache(s), paresthesias or weakness Psychiatric Psychiatric: Denies anxiety or suicidal thoughts EXAM Physical Exam Const Vital Signs: 11/12/22 19:04 11/12/22 20:00 11/12/22 20:03 Temperature 97.2 F L Temperature Source Temporal Pulse Rate 80 129 H 121 H Respiratory Rate 14 27 H 25 H Blood Pressure 142/106 H 140/65 H 166/111 H Blood Pressure Mean 118 90 129 Pulse Ox 97 95 93 Oxygen Delivery Method Room Air Room Air Room Air 11/12/22 20:05 Temperature Temperature Source Pulse Rate 112 H Respiratory Rate Blood Pressure Blood Pressure Mean Pulse Ox Oxygen Delivery Method Positive well nourished and well developed General Appearance ED: well developed and NAD HEENT Reports moist mucous membranes normocephalic and atraumatic Eyes PERRL and EOMs intact bilaterally Neck full ROM and supple Resp normal respiratory effort and clear to auscultation bilaterally Cardio no murmurs Rate: tachycardic Rhythm: abnormal rhythm irregularly irregular GI non-tender and non-distended Auscultation: normoactive bowel sounds Palpation: soft Back/Spine no CVA tenderness General Back: other FROM Extremity normal to inspection, full ROM, no calf tenderness and no pedal edema General Extremety ED: Negative for edema, pulses abnormal or tenderness General Extremity: Negative for edema or pulses abnormal Neuro oriented x3, CN's II-XII intact bilaterally, no sensory deficits noted and gait normal Sensorium / Orientation: awake and alert Motor Exam: strength 5/5 throughout Skin no rashes or lesions noted and no wounds MDM MDM MDM Narrative Medical decision making narrative: While working the patient up, I gave him IV and p.o. metoprolol, which te mporarily helped control his rate and he states when that was the case, his dyspnea was resolved. However he became more tachycardic subsequently, and dyspneic again. His two-view chest x-ray on my interpretation shows interstitial abnormalities in both bases. Radiology interpretation was reviewed, states that this was vascular congestion versus pneumonia. His EKG does show rapid A. fib without an acute injury pattern and his troponin is negative, the rest of his labs are unremarkable except for a mild leukocytosis without a leftward shift to suggest infection. Given all this I added a dose of Cardizem 20 mg IV in addition to adding a BNP. I reviewed the patient's echocardiogram which was performed at an earlier date at this hospital, this past August. He had an ejection fraction of 45% in the ER along with normal LV size. Therefore I additionally treated the patient with IV Lasix given the appearance of his chest x-ray/congestion. His BNP returned elevated but just barely at 164. He is not in florid congestive heart failure. We ambulated him, he did not desat below 90% on room air. He did feel little dyspneic, but he is feeling better. I offered admission he declines and prefers to go home on his medications if that is okay, it is okay with me. His blood pressures controlled down 140s systolic, the last number I saw was 138. He is advised again to follow-up, he understands. It appears according to notes that I read from his recent hospital admission and discharge that he was diagnosed with hyperthyroidism and he was temporarily put on methimazole for that and advised to follow-up with endocrinology. He is not in thyroid storm right now nor does he have any other symptoms of hyperthyroidism acutely. Additionally, his [id number] score was 0, and they recommended aspirin and not anticoagulation for him. In addition to the medications he ran out of I am putting him on a few days of Lasix as well. Lab Data Attestation: I reviewed the patient's lab results. Labs: Laboratory Results - last 24 hr 11/12/22 11/12/22 11/12/22 19:35 19:35 19:35 WBC 11.4 H RBC 5.03 Hgb 15.8 Hct 47.2 MCV 93.8 MCH 31.4 MCHC 33.5 RDW Std Deviation 46.0 H RDW Coeff of Doron 13.6 Plt Count 215 MPV 9.5 Immature Gran % (Auto) 0.200 Neut % (Auto) 41.9 L Lymph % (Auto) 44.6 H [place] % (Auto) 10.6 H Eos % (Auto) 1.6 Baso % (Auto) 1.1 H Absolute Neuts (auto) 4.8 Absolute Lymphs (auto) 5.07 H Nucleated RBC % 0 Differential Comment SEE COMMENT Diff Path Review May foll Atypical Lymphocytes 1+ Reactive Lymphocytes 1+ Platelet Estimate ADEQUATE RBC Morphology N CHROM Anisocytosis RARE Macrocytosis RARE Sodium 141 Potassium 4.2 Chloride 108 H Carbon Dioxide 25.0 Anion Gap 8 BUN 19 H Creatinine 0.80 Estim Creat Clear Calc 91.44 Est GFR (MDRD) Af Amer 126 Est GFR (MDRD) Non-Af 104 BUN/Creatinine Ratio 23.8 H Glucose 96 Calcium 9.5 Troponin I High Sens 31 B-Natriuretic Peptide 163.9 H Radiography Diagnostic Testing: Clinical Impression(s) from Imaging Studies Chest X-Ray 11/12/22 19:53 IMPRESSION: Bibasilar airspace disease greater on the left on the right that may represent edema or pneumonia. Electronically Signed: Nikita Callahan MD at 20:15 EST , Rhythm Strip Rhythm Strip: A-fib Rate: 125 Ectopy: None EKG Initial EKG: Attestation: I personally reviewed and interpreted this EKG as follows: Interpretation: No Acute Injury Pattern and Atrial Fibrillation (w/ RVR 120s) Prior EKG tracings: available for review Prior: Unchanged Discharge Plan Triage Chief Complaint: Palpitations ED Provider: Vicente Hollins Dx/Rx/DC Orders Clinical Impression: Atrial fibrillation with RVR, CHF (congestive heart failure) Instructions: AFib Dc, ED Heart Failure, Congestive (CHF) Prescriptions: Continued nicotine 21 mg/24 hr Patch 24 Hour 21 mg transdermal DAILY 14 Days Qty: 14 0RF aspirin 81 mg Tablet,Chewable 81 mg PO BREAKFAST 30 Days Qty: 30 0RF metoprolol tartrate 50 mg Tablet 50 mg PO BID 30 Days Qty: 60 0RF furosemide [Lasix] 20 mg tablet 20 mg PO DAILY 30 Days Qty: 30 0RF Discontinued methimazole 5 mg Tablet 40 mg PO DAILY 6 Days Qty: 48 0RF Primary Care Provider: Care Physician,No Primary Referrals: Ronen Cason MD [Med Staff - Active Staff] - As soon as possible (call for appt) Dejuan Osorio MD [Med Staff - Courtesy Staff] - As soon as possible (call for appt) [facility] Physician,No Primary [Primary Care Provider] - Disposition Disposition: Home, Self Care
[2022-11-12 19:40] LABS: Absolute Lymphocyte Count 5.07 X10^3/uL (0.83-4.51); Absolute Neutrophil Count 4.8 X10^3/uL (2.0-7.7); Basophil# 0.12 X10^3/uL; Basophil% 1.1 % (0-1); Eosinophil# 0.18 X10^3/uL; Eosinophils% 1.6 % (0-5); Hematocrit 47.2 % (40-54); Hemoglobin 15.8 g/dL (13.0-16.5); Lymphocyte # 5.07 X10^3/ul (0.83-4.51); Lymphocyte % 44.6 % (19-41); Mean Corp Hgb Conc 33.5 g/dL (32-36); Mean Corpuscular Hgb 31.4 pg (27.0-32.0); Mean Corpuscular Volume 93.8 fL (80-94); Mean Platelet Vol. 9.5 fl (6.2-12.0); Monocyte# 1.21 X10^3/uL; Monocyte% 10.6 % (0-10); NRBC Flagged by Analyzer 0 % (0-5); Neutrophil # 4.77 X10^3/uL (2.7-7.7); Neutrophil % 41.9 % (47-70); POSITIVE DIFFERENTIAL YES; Platelet Count 215 K/mm3 (150-450); RBC Distribution Width CV 13.6 % (11.6-14.6); Red Blood Count 5.03 M/mm3 (4.6-6.2); White Blood Count 11.4 K/mm3 (4.4-11.0)
[2022-11-12 19:44] LABS: Differential Indicated SCAN CRITERIA MET
--- NOTE | 2022-11-12 19:53 | RAD_ITS ---
EXAM: XR CHEST, 2 VIEWS CLINICAL INDICATION: cough, sob; in Afib TECHNIQUE: Frontal and lateral views of the chest. This report was created using [employer] report generation technology. COMPARISON: 08/31/2022 FINDINGS: LUNGS AND PLEURAL SPACES: There is bilateral lower lobe airspace disease. There are interstitial opacities present. No pneumothorax. No effusion. HEART: Unremarkable. Cardiac silhouette not enlarged. MEDIASTINUM: Central airways and mediastinal contour are unremarkable. BONES/JOINTS: Unremarkable. SOFT TISSUES: Unremarkable. RAD/Chest PA and Lateral IMPRESSION: Bibasilar airspace disease greater on the left on the right that may represent edema or pneumonia. Electronically Signed: Nikita Callahan MD at 20:15 EST ,
[2022-11-12] MEDS: Metoprolol Tartrate 5 MG/5 ML Vial IV (19:59)
[2022-11-12 20:00] VITALS: BP 140/65; PULSE 129; RESP 27; O2SAT 95
[2022-11-12 20:01] LABS: Anion Gap 8 (5-15); BUN 19 mg/dL (7-18); BUN/Creat Ratio 23.8 RATIO (10-20); Calcium,Total 9.5 mg/dL (8.5-10.1); Chloride 108 mmol/L (98-107); EST Glomerular Filtration Rate 104 mL/min (>60); Est Glom Filt Rate - Afr Amer 126 mL/min (>60); Estimated Creatinine Clearance 91.44 ml/min; Glucose 96 mg/dL (74-106); Potassium 4.2 mmol/L (3.5-5.1); Sodium Level 141 mmol/L (136-145); Troponin-I HS 31 pg/mL (3.0-78.0)
[2022-11-12 20:03] VITALS: BP 166/111; PULSE 121; RESP 25; O2SAT 93
[2022-11-12] MEDS: Metoprolol Tartrate 50 MG Tablet PO (20:04)
[2022-11-12 20:05] VITALS: PULSE 112
[2022-11-12 20:17] LABS: Anisocytosis RARE; Atypical Lymphocyte 1+ %; Macrocytosis RARE; Platelet Estimate ADEQUATE (ADEQ); Reactive Lymphocyte 1+; Red Cell Morphology N CHROM NORMAL (NORM C&C)
[2022-11-12 22:00] VITALS: PULSE 82; RESP 22; O2SAT 95
[2022-11-12] MEDS: Furosemide 40 MG/4 ML Vial IV (22:16)
[2022-11-12] MEDS: dilTIAZem 25 MG/5 ML Vial 20 MG IV BOLUS (22:16)
[2022-11-12 22:36] LABS: BNP,B-Type NATRIURETIC PEPTIDE 163.9 pg/mL (0-100)
[2022-11-15 09:37] LABS: Pathologist Review Reviewed
== END 2022-11-12 23:22 | disposition home or self-care (01) ==
PROVIDERS: Emergency Provider Emergency Medicine; Visit Provider Emergency Medicine
DX: R06.00 Dyspnea, unspecified (principal); I50.9 Heart failure, unspecified; I48.91 Unspecified atrial fibrillation; F17.210 Nicotine dependence, cigarettes, uncomplicated; Z79.899 Other long term (current) drug therapy; R00.0 Tachycardia, unspecified; Z79.82 Long term (current) use of aspirin
CPT/HCPCS: 71046; 80048; 83880; 84484; 85025; 93005; 96374; 96375; 99284; A4216; J1940

== ENCOUNTER 2023-01-24 18:14 | Emergency (ER) | payer MEDICAID, SELFPAY ==
[2023-01-24 18:15] VITALS: BP 135/92; PULSE 100; RESP 40; TEMP 35.7; O2SAT 95; BMI 31.4
--- NOTE | 2023-01-24 18:18 | EKG12_ITS ---
Test Reason : SOB Blood Pressure : / mmHG Vent. Rate : 103 BPM Atrial Rate : 381 BPM P-R Int : 000 ms QRS Dur : 080 ms QT Int : 370 ms P-R-T Axes : 000 -27 048 degrees QTc Int : 484 ms Atrial flutter with variable A-V block Septal infarct , age undetermined Abnormal ECG Confirmed by ANTONIO ALMEIDA, RONIT ([id number]), web content editor CHELA WHITT ([id number]) on 01/30/2023 9:50:07 AM Referred By: JOSE Confirmed By:RONIT ALVAREZ MD
[2023-01-24 18:19] VITALS: RESP 16; O2SAT 95
[2023-01-24 18:20] VITALS: O2SAT 95
--- NOTE | 2023-01-24 18:25 | RAD_ITS ---
INDICATION: SOB EXAMINATION/TECHNIQUE: X-RAY - XR Chest 1 View COMPARISON: 11/12/2022. FINDINGS: LINES/DEVICES: None. LUNGS: No consolidation, edema or effusion. No pneumothorax. MEDIASTINUM AND CARDIOVASCULAR STRUCTURES: Cardiac silhouette not enlarged. Central airways and mediastinal contour are unremarkable. BONES AND SOFT TISSUES: Unremarkable. RAD/Chest 1 View (Portable) IMPRESSION: No radiographic evidence of acute cardiopulmonary disease. Electronically Signed: Marta Lima MD at 18:53 EDT Reading Location ID and State: [id number] / Tel , Service support ,
[2023-01-24 18:34] LABS: Absolute Lymphocyte Count 5.87 X10^3/uL (0.83-4.51); Absolute Neutrophil Count 5.6 X10^3/uL (2.0-7.7); Basophil# 0.12 X10^3/uL; Basophil% 0.9 % (0-1); Eosinophil# 0.25 X10^3/uL; Eosinophils% 1.9 % (0-5); Hematocrit 49.9 % (40-54); Hemoglobin 15.9 g/dL (13.0-16.5); Lymphocyte # 5.87 X10^3/ul (0.83-4.51); Lymphocyte % 45.3 % (19-41); Mean Corp Hgb Conc 31.9 g/dL (32-36); Mean Corpuscular Hgb 31.6 pg (27.0-32.0); Mean Corpuscular Volume 99.2 fL (80-94); Mean Platelet Vol. 9.8 fl (6.2-12.0); Monocyte# 1.13 X10^3/uL; Monocyte% 8.7 % (0-10); NRBC Flagged by Analyzer 0 % (0-5); Neutrophil # 5.55 X10^3/uL (2.7-7.7); POSITIVE DIFFERENTIAL YES; Platelet Count 227 K/mm3 (150-450); RBC Distribution Width CV 14.5 % (11.6-14.6); RBC Distribution Width SD 52.5 fl (35.1-43.9); Red Blood Count 5.03 M/mm3 (4.6-6.2)
[2023-01-24 18:35] LABS: Differential Indicated SCAN CRITERIA MET
[2023-01-24 18:48] LABS: Differential Comment SCANNED
[2023-01-24 18:49] LABS: Anion Gap 3 (5-15); BUN 22 mg/dL (7-18); BUN/Creat Ratio 18.2 RATIO (10-20); Calcium,Total 9.1 mg/dL (8.5-10.1); Chloride 107 mmol/L (98-107); Creatinine, Serum 1.21 mg/dL (0.70-1.30); EST Glomerular Filtration Rate 64 mL/min (>60); Est Glom Filt Rate - Afr Amer 78 mL/min (>60); Estimated Creatinine Clearance 60.45 ml/min; Glucose 105 mg/dL (74-106); Potassium 4.5 mmol/L (3.5-5.1); Sodium Level 135 mmol/L (136-145); Troponin-I HS 42 pg/mL (3.0-78.0)
--- NOTE | 2023-01-24 19:16 | EDS_ITS ---
HPI History of Present Illness Chief Complaint: Shortness of Breath Informant: patient Narrative Narrative: Presents requesting his medicines. He states he has been getting a little short of breath on occasion. He thinks this is because he has been out of his me dicines for about 2 weeks. He has an appointment coming up in about 3 weeks. He was diagnosed with atrial fibrillation he said just couple months ago but it looks like it was more back in August. He had a [id number] score of 0 so he was not started on blood thinners. He is on aspirin though. He states he feels fine now. He is not having chest pain at any time. Sometimes he gets mildly s hort of breath with exertion. But he feels good now. He does not want to come in the hospital and would not consider coming in the hospital he just wants his medicine so he can go and follow-up. Again, he is asymptomatic right now. [facility] Medical History Atrial fibrillation CHF (congestive heart failure) Hyperthyroidism Hyperthyroidism determined by thyroid function test New onset a-fib Palpitations Home Medications aspirin 81 mg chewable tablet 81 mg PO BREAKFAST 30 days #30 tabs 09/01/22 [Rx Last Taken Unknown] nicotine 21 mg/24 hr daily transdermal patch 21 mg transdermal DAILY 14 days #14 ea 09/01/22 [Rx Last Taken Unknown] furosemide 20 mg tablet (Lasix) 20 mg PO DAILY 30 days #30 tabs 11/12/22 [Rx Last Taken Unknown] metoprolol tartrate 50 mg tablet 50 mg PO BID 30 days #60 tabs 11/12/22 [Rx Last Taken Unknown] aspirin 81 mg chewable tablet (Velasquez Chewable Low Dose Aspirin) 81 mg PO DAILY #30 tabs 01/24/23 [Rx Last Taken Unknown] furosemide 20 mg tablet (Lasix) 20 mg PO DAILY #30 tabs 01/24/23 [Rx Last Taken Unknown] metoprolol tartrate 50 mg tablet 50 mg PO BID #60 tabs 01/24/23 [Rx Last Taken Unknown] Allergy/AdvReac Type Severity Reaction Status Date / Time No Known Allergies Allergy Verified 01/24/23 18:14 Family History Mother CVA (cerebral vascular accident) Father CAD (coronary artery disease) Myocardial infarction Sudden cardiac Social History household members: significant other Smoking Status: Current every day smoker tobacco type: cigarettes Electronic Cigarette Use: with nicotine alcohol intake: never substance use type: does not use ROS ROS ED Constitutional Constitutional ED: Denies fever(s) Eyes Eyes: Denies change in vision ENT ENT ED: Denies rhinorrhea or sore throat Cardiovascular Cardiovascular: Reports racing heartbeat; Denies chest pain or palpitations Respiratory/Chest Respiratory/Chest: Reports dyspnea; Denies cough Gastrointestinal Gastrointestinal: Denies nausea or vomiting Musculoskeletal Musculoskeletal: Denies back pain, myalgias or neck pain Integumentary Denies rash Neurologic Neurologic: Denies headache(s), paresthesias or weakness Endocrine Endocrinology: Denies polydipsia or polyuria Hematologic/Lymphatic Hematologic/Lymphatic: Denies easy bleeding or easy bruising Allergic/Immunologic Allergic/Immunologic ED: Denies mouth swelling, tongue swelling or urticaria EXAM Physical Exam Narrative Exam Narrative: CONSTITUTIONAL: Patient is nontoxic in appearance. The patient looks comfortable. Work of breathing looks normal. Carries on a normal conversation with no difficulties. HEENT: No notable trauma. Mucous membranes moist. No sinus tenderness. No indication of pain with swallowing. EYES: No conjunctival injection. No proptosis. NECK:No JVD. No stridor. CARDIOVASCULAR: Slightly irregular rhythm with a rate that varies anywhere from about 98-110. No notable murmur. No JVD. RESPIRATORY: No respiratory distress. Breathing is unlabored. No wheezes. No rhonchi. No pain with a deep breath. No chest wall tenderness. I hear no basi lar rales whatsoever. GASTROINTESTINAL: Not distended. Bowel sounds are normal. No tenderness. No guarding. No rebound. No palpable mass. No bruit is heard. GENITOURINARY: No tenderness over the bladder. No CVA tenderness. MUSCULOSKELETAL: Atraumatic. No peripheral edema. No cord. No tenderness along the deep venous system. No asymmetry. No distended veins. NEUROLOGICAL: Patient is alert and appropriate. No focal deficit noted. SKIN: No noted rashes. No diaphoresis. No pallor PSYCHIATRIC: Patient is calm. Mood is appropriate. Const Vital Signs: 01/24/23 18:15 01/24/23 18:19 04/18/23 18:19 Temperature 96.3 F L Temperature Source Temporal Pulse Rate 100 Respiratory Rate 40 H 16 Respiratory Effort Short of Breath Labored Accessory Muscle Use Respiratory Depth Normal Respiratory Pattern Normal Blood Pressure 135/92 H Blood Pressure Mean 106 Pulse Ox 95 95 Oxygen Delivery Method Room Air Room Air Room Air 01/24/23 18:20 Temperature Temperature Source Pulse Rate Respiratory Rate Respiratory Effort Respiratory Depth Respiratory Pattern Blood Pressure Blood Pressure Mean Pulse Ox 95 Oxygen Delivery Method Room Air MDM MDM MDM Narrative Medical decision making narrative: My independent interpretation the patient's single AP chest x-ray shows some increased markings but this may be more body habitus. Does not look like CHF. No enlarged cardiac silhouette. Reading shows no acute process. Patient's white count is mildly high but it seems to always be this way. Hemog lobin platelets are normal. Electrolytes show minimal decrease of sodium but otherwise normal. His troponin is negative at 42 despite being out of meds and having symptoms off and on for 2 weeks. I do not think this needs to be repeated. COVID is negative. I talked with patient about options. He does not want to consider coming the hospital. He feels fine. He just wants to restart his meds. I looked back on his prior chart. They did not have him on blood thinners other than aspirin. I will rewrite for his Lasix metoprolol and aspirin. He has a follow-up appointment already. We discussed reasons to return. Lab Data Attestation: I reviewed the patient's lab results. Labs: Laboratory Results - last 24 hr 01/24/23 01/24/23 18:20 18:20 WBC 13.0 H RBC 5.03 Hgb 15.9 Hct 49.9 MCV 99.2 H MCH 31.6 MCHC 31.9 L RDW Std Deviation 52.5 H RDW Coeff of Doron 14.5 Plt Count 227 MPV 9.8 Immature Gran % (Auto) 0.200 Neut % (Auto) 43.0 L Lymph % (Auto) 45.3 H [place] % (Auto) 8.7 Eos % (Auto) 1.9 Baso % (Auto) 0.9 Absolute Neuts (auto) 5.6 Absolute Lymphs (auto) 5.87 H Nucleated RBC % 0 Differential Comment SCANNED Sodium 135 L Potassium 4.5 Chloride 107 Carbon Dioxide 25.0 Anion Gap 3 L BUN 22 H Creatinine 1.21 Estim Creat Clear Calc 60.45 Est GFR (MDRD) Af Amer 78 Est GFR (MDRD) Non-Af 64 BUN/Creatinine Ratio 18.2 Glucose 105 Calcium 9.1 Troponin I High Sens 42 Radiography Diagnostic Testing: Clinical Impression(s) from Imaging Studies Chest X-Ray 01/24/23 18:25 IMPRESSION: No radiographic evidence of acute cardiopulmonary disease. Electronically Signed: Marta Lima MD at 18:53 EDT , Discharge Plan Triage Chief Complaint: Shortness of Breath ED Provider: Rohit Rogers Dx/Rx/DC Orders Clinical Impression: Atrial fibrillation, History of dyspnea, Has run out of medications Instructions: ED AFIB Prescriptions: New aspirin [Velasquez Chewable Aspirin] 81 mg tablet,chewable 81 mg PO DAILY Qty: 30 0RF metoprolol tartrate 50 mg tablet 50 mg PO BID Qty: 60 0RF furosemide [Lasix] 20 mg tablet 20 mg PO DAILY Qty: 30 0RF No Action nicotine 21 mg/24 hr Patch 24 Hour 21 mg transdermal DAILY 14 Days Qty: 14 0RF aspirin 81 mg Tablet,Chewable 81 mg PO BREAKFAST 30 Days Qty: 30 0RF metoprolol tartrate 50 mg Tablet 50 mg PO BID 30 Days Qty: 60 0RF furosemide [Lasix] 20 mg tablet 20 mg PO DAILY 30 Days Qty: 30 0RF Primary Care Provider: Care Physician,No Primary Referrals: Care Physician,No Primary [Primary Care Provider] - Activity Restrictions/Additional Instructions: Follow-up with your cardiology appointment as scheduled. Disposition Disposition: Home, Self Care
[2023-01-24] MEDS: Furosemide 20 MG Tablet PO (19:46)
[2023-01-24] MEDS: Metoprolol Tartrate 25 MG Tablet 50 MG PO (19:46)
[2023-01-24] MEDS: Aspirin 81 MG TAB.CHEW PO (19:46)
== END 2023-01-24 19:50 | disposition home or self-care (01) ==
PROVIDERS: Emergency Provider Emergency Medicine; Visit Provider Emergency Medicine
DX: I48.91 Unspecified atrial fibrillation (principal); I50.9 Heart failure, unspecified; F17.210 Nicotine dependence, cigarettes, uncomplicated; R06.00 Dyspnea, unspecified; Z76.0 Encounter for issue of repeat prescription; Z79.82 Long term (current) use of aspirin; Z79.899 Other long term (current) drug therapy; F17.290 Nicotine dependence, other tobacco product, uncomplicated
CPT/HCPCS: 71045; 80048; 84484; 85025; 87811; 93005; 94760; 99284; A4216

== ENCOUNTER 2023-05-29 08:42 | Inpatient (IN) | payer MEDICAID, SELFPAY ==
[2023-05-29] VITALS (22 sets, daily range): BP systolic 110–178; BP diastolic 64–137; PULSE 81–133; RESP 16–32; TEMP 36.2–36.9; O2SAT 87–98; BMI 33.7; BMI 33.2
--- NOTE | 2023-05-29 09:04 | EX.ED.DYSGE1 ---
HPI History of Present Illness Chief Complaint: Chest Pain Informant: patient Onset/Context/Timing Onset: Today and Hours (9) Context: Gradual Onset Timing: Continuous Quality: Racing Location: Chest Worsened by: Nothing Relieved by: Nothing Narrative Narrative: Patient presents with palpitations that began at midnight today. Patient states it feels like his heart is racing. Patient admits to some shortness of breath and cough with this. Patient also admits to some lightheadedness. Patient states that has been constant since midnight. Admits to subjective fevers but denies any chills. Patient denies any nausea or vomiting. Patient denies any history of cardiac dysrhythmia or cardiac ischemia. Patient states she does not see a doctor regularly however. [facility] Medical History Atrial fibrillation Chest pain CHF (congestive heart failure) Dyspnea on exertion Has run out of medications History of dyspnea Hyperthyroidism Hyperthyroidism determined by thyroid function test New onset a-fib Palpitations Home Medications apixaban 5 mg tablet (Eliquis) 5 mg PO BID #60 tabs 01/31/23 [Rx Last Taken Unknown] furosemide 20 mg tablet (Lasix) 20 mg PO DAILY #30 tabs 01/31/23 [Rx Last Taken Unknown] lisinopril 5 mg tablet 5 mg PO DAILY #30 tabs 01/31/23 [Rx Last Taken Unknown] metoprolol tartrate 100 mg tablet 100 mg PO BID #60 tabs 01/31/23 [Rx Last Taken Unknown] Allergy/AdvReac Type Severity Reaction Status Date / Time No Known Allergies Allergy Verified 05/29/23 12:03 Family History Mother CVA (cerebral vascular accident) Father CAD (coronary artery disease) Myocardial infarction Sudden cardiac Surgical History no surgical history no surgical history Social History household members: significant other Smoking Status: Current every day smoker tobacco type: cigarettes Electronic Cigarette Use: with nicotine alcohol intake: former year quit: 3 substance use type: does not use caffeine: No ROS ROS ED Constitutional Constitutional ED: Reports fever(s) and subjective; Denies chills Eyes Eyes: Reports blurry vision; Denies diplopia ENT ENT ED: Denies rhinorrhea or sore throat Cardiovascular Cardiovascular: Reports chest pain and palpitations Respiratory/Chest Respiratory/Chest: Reports cough and dyspnea Gastrointestinal Gastrointestinal: Denies abdominal pain, nausea or vomiting Genitourinary Genitourinary ED: Denies dysuria or hematuria Musculoskeletal Musculoskeletal: Reports back pain and neck pain Integumentary Denies abscess or rash Neurologic Neurologic: Reports headache(s); Denies weakness Allergic/Immunologic Allergic/Immunologic ED: Denies mouth swelling or urticaria EXAM Physical Exam Const Vital Signs: 05/29/23 08:43 05/29/23 08:47 05/29/23 08:47 Temperature 98.1 F Temperature Source Oral Pulse Rate 81 Respiratory Rate 20 H Respiratory Pattern Normal Blood Pressure 134/108 H Blood Pressure Mean 116 Blood Pressure Source Blood Pressure Position Blood Pressure Location Pulse Ox 87 Oxygen Delivery Method Room Air Oxygen Flow Rate (L/min) 2 05/29/23 09:21 05/29/23 09:52 05/29/23 10:26 Temperature 97.2 F L 97.2 F L Temperature Source Oral Oral Pulse Rate 117 H 111 H Respiratory Rate 22 H 16 Respiratory Pattern Blood Pressure 146/112 H 144/120 H Blood Pressure Mean 123 128 Blood Pressure Source Monitor Blood Pressure Position Sitting Sitting Blood Pressure Location Left Arm Left Arm Pulse Ox 94 95 94 Oxygen Delivery Method Room Air Nasal Cannula Nasal Cannula Oxygen Flow Rate (L/min) 2 2 05/29/23 11:02 05/29/23 11:04 05/29/23 11:08 Temperature 97.2 F L Temperature Source Oral Pulse Rate 133 H 131 H 131 H Respiratory Rate 26 H 18 16 Respiratory Pattern Blood Pressure 151/121 H 159/137 H 153/130 H Blood Pressure Mean 131 144 137 Blood Pressure Source Blood Pressure Position Blood Pressure Location Pulse Ox 94 94 96 Oxygen Delivery Method Room Air Nasal Cannula Room Air Oxygen Flow Rate (L/min) 2 05/29/23 12:00 05/29/23 12:01 05/29/23 12:35 Temperature 97.2 F L Temperature Source Oral Pulse Rate 120 H 115 H 111 H Respiratory Rate 22 H 18 18 Respiratory Pattern Blood Pressure 150/101 H 150/101 H 178/114 H Blood Pressure Mean 117 117 135 Blood Pressure Source Blood Pressure Position Supine Blood Pressure Location Left Arm Pulse Ox 98 93 98 Oxygen Delivery Method Nasal Cannula Nasal Cannula Room Air Oxygen Flow Rate (L/min) 2 2 Positive well nourished, well developed and obese General Appearance ED: well developed and NAD Nutritional Appearance: obese HEENT normocephalic and atraumatic Eyes PERRL and EOMs intact bilaterally Neck supple and no JVD Chest Wall palpation of chest normal Resp normal respiratory effort and clear to auscultation bilaterally Effort and Inspection: Negative for respiratory distress Cardio Rate: tachycardic Rhythm: abnormal rhythm ectopic beats GI normal to inspection, nondistended, normoactive bowel sounds, soft to palpation, non-tender and non-distended Extremity normal to inspection General Extremety ED: Yes edema; Negative for tenderness General Extremity: edema bilateral lower extremity Details: moderate Neuro oriented x3, CN's II-XII intact bilaterally and no sensory deficits noted Sensorium / Orientation: awake and alert Motor Exam: strength 5/5 throughout Psych mental status grossly normal MDM MDM MDM Narrative Medical decision making narrative: Differential diagnosis includes cardiac dysrhythmia, cardiac ischemia, pneumonia, electrolyte abnormality, anemia, congestive heart failure, pulmonary embolism, and anxiety. EKG will be obtained to assess for cardiac dysrhythmia and cardiac ischemia. CBC will be obtained to assess for leukocytosis and anemia. Basic metabolic profile will be obtained to assess for electrolyte abnormality and renal function. BNP will be obtained to assess for congestive heart failure. D-dimer will be obtained to assess for pulmonary embolism. High-sensitivity troponin will be obtained to assess for cardiac ischemia. 2-hour repeat high-sensitivity troponin will be obtained to assess for ongoing cardiac ischemia. Magnesium will be obtained to assess for hypomagnesemia. CTA of the chest will be obtained to assess for pulmonary embolism. Lab Data Attestation: I reviewed the patient's lab results. Lab results narrative: CBC was reviewed and was within normal limits. Basic metabolic profile was reviewed and was essentially within normal limits. Magnesium was reviewed and was normal at 2.0. High-sensitivity troponin was reviewed and was normal at 42. 2-hour repeat high-sensitivity troponin was reviewed and was normal at 40. BNP was reviewed and was elevated at 320.1. D-dimer was reviewed and was elevated at 1.27. Labs: Laboratory Results - last 24 hr 05/29/23 05/29/23 08:50 11:30 WBC 10.3 RBC 4.47 L Hgb 14.4 Hct 45.3 MCV 101.3 H MCH 32.2 H MCHC 31.8 L RDW Std Deviation 64.6 H RDW Coeff of Doron 17.2 H Plt Count 246 MPV 10.2 Immature Gran % (Auto) 0.300 Neut % (Auto) 54.2 Lymph % (Auto) 35.8 Irwin % (Auto) 7.9 Eos % (Auto) 0.6 Baso % (Auto) 1.2 H Absolute Neuts (auto) 5.6 Absolute Lymphs (auto) 3.68 Nucleated RBC % 0 D-Dimer Quant (PE/DVT) 1.27 H* Sodium 137 Potassium 4.6 Chloride 109 H Carbon Dioxide 21.0 Anion Gap 7 BUN 20 H Creatinine 1.29 Estim Creat Clear Calc 56.71 Est GFR (MDRD) Af Amer 72 Est GFR (MDRD) Non-Af 60 BUN/Creatinine Ratio 15.5 Glucose 107 H Calcium 8.9 Magnesium 2.0 Troponin I High Sens 42 40 B-Natriuretic Peptide 320.1 H Radiography Diagnostic Testing: Clinical Impression(s) from Imaging Studies Chest CTA 05/29/23 10:05 IMPRESSION: 1. No evidence of pulmonary embolism. 2. Hazy bilateral groundglass opacities/infiltrates could reflect pulmonary edema. 3. Small bilateral pleural effusions larger on the right side. Electronically Signed: Mahin Looney MD at 10:45 EDT , CTA of the chest was obtained. There is no evidence of pulmonary embolism or aortic dissection. There is bilateral groundglass opacities/infiltrates which could reflect pulmonary edema. There are bilateral pleural effusions, worse on the right. This was interpreted by the radiologist was also independently reviewed by myself. EKG Initial EKG: Attestation: I personally reviewed and interpreted this EKG as follows: Interpretation: Atrial Fibrillation (169) and Non-Specific ST Changes Comments: EKG was obtained. On my independent interpretation, it shows atrial fibrillation with a rate of 169. QRS interval was normal at 70 ms. QTc interval was normal at 422 ms. There is left axis deviation at -63. There are no acute ST or T wave changes. Prior EKG tracings: available for review Prior: Unchanged (01/31/2023) Management Discussion w/another healthcare provider: Hospitalist Treatment and Re-Evaluation :: GivenBased on prehospital EKG which showed an SVT, patient was given 6 mg of adenosine. There is no change in heart rate with this. Patient was given 12 mg of adenosine. There is no change in heart rate with this either. A bolus of Cardizem and started on a Cardizem drip. Patient was given a dose of Lasix here. Patient's heart rate improved to 105 while on the Cardizem drip. Case was discussed with the hospitalist. He will admit the patient to his service. Patient understood and was agreeable with the plan. All questions were answered. Critical Care Time Critical Care Time: Yes Critical care time (excluding procedures): 30-74 minutes (32), Including time spent:, Discussing w/Patient &/or Family/[employer], Discussing w/Consultants, Arranging Admission or Transfer and Performing Direct Patient Care at Bedside Discharge Plan Dx/Rx/DC Orders Clinical Impression: Atrial fibrillation with rapid ventricular response, CHF (congestive heart failure) Disposition Disposition: Acute Care Hospital [facility]
[2023-05-29 09:15] LABS: Absolute Lymphocyte Count 3.68 X10^3/uL (0.83-4.51); Absolute Neutrophil Count 5.6 X10^3/uL (2.0-7.7); Basophil# 0.12 X10^3/uL; Basophil% 1.2 % (0-1); Eosinophil# 0.06 X10^3/uL; Eosinophils% 0.6 % (0-5); Hematocrit 45.3 % (40-54); Hemoglobin 14.4 g/dL (13.0-16.5); Lymphocyte # 3.68 X10^3/ul (0.83-4.51); Lymphocyte % 35.8 % (19-41); Mean Corp Hgb Conc 31.8 g/dL (32-36); Mean Corpuscular Hgb 32.2 pg (27.0-32.0); Mean Corpuscular Volume 101.3 fL (80-94); Mean Platelet Vol. 10.2 fl (6.2-12.0); Monocyte# 0.81 X10^3/uL; Monocyte% 7.9 % (0-10); NRBC Flagged by Analyzer 0 % (0-5); Neutrophil # 5.59 X10^3/uL (2.7-7.7); Neutrophil % 54.2 % (47-70); Platelet Count 246 K/mm3 (150-450); RBC Distribution Width CV 17.2 % (11.6-14.6); RBC Distribution Width SD 64.6 fl (35.1-43.9); Red Blood Count 4.47 M/mm3 (4.6-6.2); White Blood Count 10.3 K/mm3 (4.4-11.0)
[2023-05-29] MEDS: Adenosine 6 MG/2 ML Syringe IV (09:28)
[2023-05-29 09:29] LABS: D-Dimer Quantitative (DVT/PE) 1.27 FEU/ug/m (0.27-0.49)
[2023-05-29] MEDS: dilTIAZem 25 MG/5 ML Vial IV BOLUS (09:32)
[2023-05-29 09:34] LABS: Anion Gap 7 (5-15); BUN 20 mg/dL (7-18); BUN/Creat Ratio 15.5 RATIO (10-20); Calcium,Total 8.9 mg/dL (8.5-10.1); Chloride 109 mmol/L (98-107); Creatinine, Serum 1.29 mg/dL (0.70-1.30); EST Glomerular Filtration Rate 60 mL/min (>60); Est Glom Filt Rate - Afr Amer 72 mL/min (>60); Estimated Creatinine Clearance 56.71 ml/min; Glucose 107 mg/dL (74-106); Potassium 4.6 mmol/L (3.5-5.1); Sodium Level 137 mmol/L (136-145); Troponin-I HS (w/2H Reflex) 42 pg/mL (3.0-78.0)
[2023-05-29] MEDS: Adenosine 6 MG/2 ML Syringe 12 MG IV (09:34)
[2023-05-29 09:47] LABS: BNP,B-Type NATRIURETIC PEPTIDE 320.1 pg/mL (0-100)
--- NOTE | 2023-05-29 10:05 | CT_ITS ---
STUDY: CTA CHEST REASON FOR EXAM: Male, 62 years old. Elevated D-dimer RADIATION DOSAGE (If Supplied By Facility): CTDIvol = ( 20.31 ) mGy, DLP = ( 528.46 ) mGycm TECHNIQUE: The examination was performed with the intravenous administration of IV 100mL Isovue-370. Post-processing of the angiographic images was performed, with multiplanar reformation and 3D reconstruction. Individualized dose optimization techniques were used for this CT. COMPARISON: No prior examinations are available for comparison. FINDINGS: Normal enhancement of the main pulmonary artery and right and left pulmonary arteries. Normal enhancement of the bilateral peripheral pulmonary arteries. There is no demonstrated pulmonary embolism. There is atherosclerotic calcification of the aortic arch with mild tortuosity. Aorta is not enhanced. Dissection cannot be evaluated. Borderline heart size. There are calcifications of the coronary arteries. No evidence of pericardial effusion. Normal mediastinum. Normal hilar regions. Normal visualized trachea and bronchi. Hazy bilateral groundglass opacities/infiltrates could reflect pulmonary edema. No focal consolidation is seen. Small bilateral pleural effusions larger on the right side. Normal chest wall structures. No demonstrated acute osseous changes. Individualized portions upper abdomen demonstrate no acute process. CT/CTA Chest W/WO Contrast IMPRESSION: 1. No evidence of pulmonary embolism. 2. Hazy bilateral groundglass opacities/infiltrates could reflect pulmonary edema. 3. Small bilateral pleural effusions larger on the right side. Electronically Signed: Mahin Looney MD at 10:45 EDT ,
[2023-05-29 11:11] LABS: Reflex Troponin-HS? (from REC) Y
[2023-05-29 11:56] LABS: Troponin-I HS 40 pg/mL (3.0-78.0)
--- NOTE | 2023-05-29 12:39 | NURSING ---
DR EMANUEL URIAS
[2023-05-29] MEDS: Furosemide 40 MG/4 ML Vial IV ×3 (12:45→21:21)
--- NOTE | 2023-05-29 13:07 | PCM.HP.STD ---
HPI - General General Date of Admission: 05/29/23 Date of Service: 05/29/23 Chief Complaint: Shortness of breath and palpitation HPI Narrative As of Flavio ZHU, is a 62 M with past medical history single for paroxysmal A-fib, CHF who presented with palpitations over 3-day duration. Patient also did notice swelling involving both lower extremities. In view of worsening symptoms patient elected to present to the emergency department. Patient was found to be in A-fib with RVR started on Cardizem drip admitted to monitored bed. Chest x-ray also did show vascular congestion consistent with heart failure. [facility] Medical History Atrial fibrillation Chest pain CHF (congestive heart failure) Dyspnea on exertion Has run out of medications History of dyspnea Hyperthyroidism Hyperthyroidism determined by thyroid function test New onset a-fib Palpitations Home Medications apixaban 5 mg tablet (Eliquis) 5 mg PO BID unknown #60 tabs 01/31/23 [Rx Last Taken Unknown] furosemide 20 mg tablet (Lasix) 20 mg PO DAILY unknown #30 tabs 01/31/23 [Rx Last Taken Unknown] lisinopril 5 mg tablet 5 mg PO DAILY bp #30 tabs 01/31/23 [Rx Last Taken Unknown] metoprolol tartrate 100 mg tablet 100 mg PO BID unknown #60 tabs 01/31/23 [Rx Last Taken Unknown] Allergy/AdvReac Type Severity Reaction Status Date / Time No Known Allergies Allergy Verified 05/29/23 12:03 Family History Mother CVA (cerebral vascular accident) Father CAD (coronary artery disease) Myocardial infarction Sudden cardiac Surgical History no surgical history Social History household members: significant other Smoking Status: Current every day smoker tobacco type: cigarettes Electronic Cigarette Use: with nicotine alcohol intake: former year quit: 3 substance use type: does not use caffeine: No ROS ROS Narrative GENERAL: denies fever, chills, night sweats, HEENT: denies headache, sinus congestion, RESPIRATORY: shortness of breath, dyspnea on exertion CARDIAC: palpitations, orthopnea, GASTROINTESTINAL: denies abdominal pain, nausea, GENITOURINARY: denies dysuria, urgency, frequency, EXTREMITY: denies swelling MUSCULOSKELETAL: denies current joint pain or tenderness NEUROLOGIC: denies focal numbness, weakness, tingling HEMATOLOGIC: denies easy bruising and/or hemorrhage INTEGUMENT: denies rashes PSYCHIATRIC: denies suicidal or homicidal ideation Vital Signs Vital Signs Vital Signs: 05/29/23 08:43 05/29/23 08:47 05/29/23 08:47 Temperature 98.1 F Temperature Source Oral Pulse Rate 81 Respiratory Rate 20 H Respiratory Pattern Normal Blood Pressure 134/108 H Blood Pressure Mean 116 Blood Pressure Source Blood Pressure Position Blood Pressure Location Pulse Ox 87 Oxygen Delivery Method Room Air Oxygen Flow Rate (L/min) 2 05/29/23 09:21 05/29/23 09:52 05/29/23 10:26 Temperature 97.2 F L 97.2 F L Temperature Source Oral Oral Pulse Rate 117 H 111 H Respiratory Rate 22 H 16 Respiratory Pattern Blood Pressure 146/112 H 144/120 H Blood Pressure Mean 123 128 Blood Pressure Source Monitor Blood Pressure Position Sitting Sitting Blood Pressure Location Left Arm Left Arm Pulse Ox 94 95 94 Oxygen Delivery Method Room Air Nasal Cannula Nasal Cannula Oxygen Flow Rate (L/min) 2 2 05/29/23 11:02 05/29/23 11:04 05/29/23 11:08 Temperature 97.2 F L Temperature Source Oral Pulse Rate 133 H 131 H 131 H Respiratory Rate 26 H 18 16 Respiratory Pattern Blood Pressure 151/121 H 159/137 H 153/130 H Blood Pressure Mean 131 144 137 Blood Pressure Source Blood Pressure Position Blood Pressure Location Pulse Ox 94 94 96 Oxygen Delivery Method Room Air Nasal Cannula Room Air Oxygen Flow Rate (L/min) 2 05/29/23 12:00 05/29/23 12:01 05/29/23 12:35 Temperature 97.2 F L Temperature Source Oral Pulse Rate 120 H 115 H 111 H Respiratory Rate 22 H 18 18 Respiratory Pattern Blood Pressure 150/101 H 150/101 H 178/114 H Blood Pressure Mean 117 117 135 Blood Pressure Source Blood Pressure Position Supine Blood Pressure Location Left Arm Pulse Ox 98 93 98 Oxygen Delivery Method Nasal Cannula Nasal Cannula Room Air Oxygen Flow Rate (L/min) 2 2 05/29/23 12:49 Temperature 97.2 F L Temperature Source Oral Pulse Rate 112 H Respiratory Rate 22 H Respiratory Pattern Blood Pressure 156/109 H Blood Pressure Mean 124 Blood Pressure Source Blood Pressure Position Blood Pressure Location Pulse Ox 93 Oxygen Delivery Method Nasal Cannula Oxygen Flow Rate (L/min) 2 Weight Weight: 100.5 kg Body Mass Index (BMI) 33.7 Physical Exam Narrative GENERAL: cooperative HEENT: Atraumatic; normocephalic EYES; Anicteric, Normal Conjunctiva NECK; supple, normal thyroid, RESPIRATORY: Diminished to auscultation CARDIOVASCULAR: Irregularly irregular GI: soft, normoactive bowel sounds, : No Renal angle tenderness; EXTREMITIES: edema, no clubbing, MUSCULOSKELETAL: no muscle wasting NEURO: Awake; no lateralizing signs. SKIN: No Rash PSYCH; Flat affect Results Lab / Micro Data 05/29/23 08:50 05/29/23 08:50 Labs: Laboratory Results - last 24 hr 05/29/23 08:50: WBC 10.3, RBC 4.47 L, Hgb 14.4, Hct 45.3, MCV 101.3 H, MCH 32.2 H, MCHC 31.8 L, RDW Std Deviation 64.6 H, RDW Coeff of Doron 17.2 H, Plt Count 246, MPV 10.2, Immature Gran % (Auto) 0.300, Neut % (Auto) 54.2, Lymph % (Auto) 35.8, Rutherford % (Auto) 7.9, Eos % (Auto) 0.6, Baso % (Auto) 1.2 H, Absolute Neuts (auto) 5.6, Absolute Lymphs (auto) 3.68, Nucleated RBC % 0, D-Dimer Quant (PE/DVT) 1.27 H*, Sodium 137, Potassium 4.6, Chloride 109 H, Carbon Dioxide 21.0, Anion Gap 7, BUN 20 H, Creatinine 1.29, Estim Creat Clear Calc 56.71, Est GFR (MDRD) Af Amer 72, Est GFR (MDRD) Non-Af 60, BUN/Creatinine Ratio 15.5, Glucose 107 H, Calcium 8.9, Magnesium 2.0, Troponin I High Sens 42, B-Natriuretic Peptide 320.1 H 05/29/23 11:30: Troponin I High Sens 40 Radiology Impression Chest CTA 05/29/23 10:05 IMPRESSION: 1. No evidence of pulmonary embolism. 2. Hazy bilateral groundglass opacities/infiltrates could reflect pulmonary edema. 3. Small bilateral pleural effusions larger on the right side. Electronically Signed: Mahin Looney MD at 10:45 EDT , Assessment & Plan Assessment/Plan (1) CHF (congestive heart failure): (2) Atrial fibrillation with rapid ventricular response: PLAN: Plan Patient is a 62-year-old gentleman presenting with palpitations and shortness of breath 1. Paroxysmal A-fib ? Presented with A-fib with RVR admitted to a monitored bed started on Cardizem drip titrated to keep heart rate less than 100. As part of patient's management ordered serial cardiac enzymes and 2D echo. Patient is on systemic anticoagulation with apixaban did 2. Acute on chronic congestive heart failure with reduced ejection fraction ? Patient placed on Lasix in addition to strict input and output, daily weight, supplemental oxygen. Patient response to therapy being monitored with daily BMPs. 2D echo ordered for reassessment of ejection fraction 3. Hypothyroidism ? Patient is on methimazole plan is to resume once home meds have been reconciled 4. Hypertension - Blood pressure controlled, home medications continued with dose adjustment as needed 5. Class I obesity with BMI of 33.7 ? Weight loss advised 6. Tobacco dependence - Counseled on cessation, offered nicotine patch for tobacco cravings 7. DVT prophylaxis ? Patient is on apixaban did continue Time spent in the patient's overall evaluation,decision-making process, review of diagnostic data, adjustment of management, discussion with other providers, nursing nursing and ancillary staff involved in patient's care documentation, 75 Minutes Advance planning; did discuss with the patient and family regarding advanced directives as well as CODE STATUS. Did explain the various scenarios involved ( FULL CODE, DNR CCA, DNR CCA with no intubation, and DNR CC and what each meant) patient elected remain full code with CPR and intubation if needed. Order was placed. Time spent on discussion 18 minutes. Charges/Coding Visit Charges Inpatient E&M: 64804 Init Hosp L3 Procedures Hospitalists Procedures: 98172 Advncd Care Plan 30 Min
--- NOTE | 2023-05-29 13:45 | ECHOD_ITS ---
Reason For Study: DYSPNEA Procedure This was a 2D Doppler, Color Flow transthoracic echocardiogram. Exam performed portable in patient room. Left Ventricle Normal LV size. The estimated ejection fraction is 30 %. Moderate global left ventricular systolic dysfunction. Stage 2 diastolic dysfunction. Right Ventricle Normal RV size. Mild global right ventricular systolic dysfunction. Atria The left atrium is severely enlarged. The right atrium is moderately enlarged. Mitral Valve Mild diffuse mitral valve thickening. There is Severe focal posterior mitral annular calcification. Moderately severe (3+) mitral valve insufficiency. Tricuspid Valve Normal tricuspid valve. Right ventricular systolic pressure estimated to be 50 mmHg. Moderate pulmonary hypertension. Moderate (2+) tricuspid valve insufficiency. Aortic Valve Trisinus/trileaflet aortic valve. Mild focal aortic valve calcification. There is no aortic stenosis. Pulmonic Valve The pulmonic valve is not well visualized. Great Vessels Normal aortic root. Pericardium/Pleural No pericardial effusion. MMode/2D Measurements & Calculations LVIDd: 5.2 cm IVSd: 0.91 cm Ao root diam: 3.3 cm LVIDs: 4.4 cm LVPWd: 1.1 cm FS: 14.3 % LAV(MOD-bp): 90.6 ml LVAd ap4: 31.3 cm2 SV(MOD-sp4): 58.1 ml LAV(MOD-bp) Indexed: 42.5 ml/m2 LVLd ap4: 7.5 cm LAV(MOD-sp2): 86.3 ml EDV(MOD-sp4): 106.9 ml LAV(MOD-sp4): 82.1 ml EDV(sp4-el): 110.2 ml LVAs ap4: 19.3 cm2 LVLs ap4: 6.2 cm ESV(MOD-sp4): 48.9 ml ESV(sp4-el): 50.7 ml EF(MOD-sp4): 54.3 % EF(sp4-el): 54.0 % SV(sp4-el): 59.5 ml LA A4 area: 27.0 cm2 LA dimension(2D): 4.5 cm RA A4 area: 24.9 cm2 TAPSE: 1.1 cm Doppler Measurements & Calculations MV E max louis: 162.3 cm/sec Lat Peak E' Louis: 9.5 cm/sec Med Peak E' Louis: 9.6 cm/sec E/E' lat: 17.2 E/E' med: 16.9 Ao V2 max: 98.9 cm/sec LV V1 max: 90.6 cm/sec TR max louis: 342.3 cm/sec Ao max P.0 mmHg LV V1 max P.3 mmHg TR max P.9 mmHg Ao V2 mean: 68.1 cm/sec LV V1 mean P.8 mmHg Ao mean P.2 mmHg LV V1 mean: 63.8 cm/sec Ao V2 VTI: 13.1 cm LV V1 VTI: 12.6 cm AV (velocity ratio): 0.96 ECHO/Echo Complete Interpretation Summary The estimated ejection fraction is 30 %. Mild global right ventricular systolic dysfunction. The left atrium is severely enlarged. The right atrium is moderately enlarged. Moderately severe (3+) mitral valve insufficiency. Moderate (2+) tricuspid valve insufficiency. Right ventricular systolic pressure estimated to be 50 mmHg. Ordering Physician: Allan Bustamante Referring Physician: MARK PCP Performed By: Jaymie Workman RCS
[2023-05-29] MEDS: 0.9% Saline Lock 10 ML Syringe IV ×2 (14:58→22:09)
[2023-05-29 15:43] LABS: Troponin-I HS 47 pg/mL (3.0-78.0)
[2023-05-29] MEDS: guaiFENesin 10 ML UDC (200MG/10ML) 20 ML PO (17:15)
[2023-05-29] MEDS: Acetaminophen 325 MG Tablet 650 MG PO (22:09)
[2023-05-30] VITALS (27 sets, daily range): BP systolic 74–145; BP diastolic 52–100; PULSE 56–102; RESP 14–25; TEMP 36–37.2; O2SAT 92–100
[2023-05-30] MEDS: Furosemide 40 MG/4 ML Vial IV (05:26)
[2023-05-30 06:49] LABS: Absolute Neutrophil Count 4.8 X10^3/uL (2.0-7.7); Basophil# 0.11 X10^3/uL; Eosinophil# 0.21 X10^3/uL; Eosinophils% 1.9 % (0-5); Hematocrit 42.4 % (40-54); Hemoglobin 13.4 g/dL (13.0-16.5); Lymphocyte % 44.8 % (19-41); Mean Corp Hgb Conc 31.6 g/dL (32-36); Mean Corpuscular Hgb 31.1 pg (27.0-32.0); Mean Corpuscular Volume 98.4 fL (80-94); Mean Platelet Vol. 10.1 fl (6.2-12.0); NRBC Flagged by Analyzer 0 % (0-5); Neutrophil # 4.82 X10^3/uL (2.7-7.7); Platelet Count 232 K/mm3 (150-450); RBC Distribution Width SD 61.1 fl (35.1-43.9); Red Blood Count 4.31 M/mm3 (4.6-6.2); White Blood Count 11.2 K/mm3 (4.4-11.0)
[2023-05-30 07:13] LABS: Anion Gap 7 (5-15); BUN 23 mg/dL (7-18); BUN/Creat Ratio 16.3 RATIO (10-20); Calcium,Total 8.5 mg/dL (8.5-10.1); Chloride 102 mmol/L (98-107); Creatinine, Serum 1.41 mg/dL (0.70-1.30); EST Glomerular Filtration Rate 54 mL/min (>60); Est Glom Filt Rate - Afr Amer 65 mL/min (>60); Estimated Creatinine Clearance 51.88 ml/min; Glucose 100 mg/dL (74-106); Magnesium 2.1 mg/dL (1.6-2.6); Potassium 3.2 mmol/L (3.5-5.1); Sodium Level 137 mmol/L (136-145)
[2023-05-30 07:23] LABS: Phosphorus 2.9 mg/dL (2.5-4.9)
--- NOTE | 2023-05-30 08:16 | PCM.PN.HOSP ---
Reason for Visit Reason for Visit: Diagnoses Unspecified atrial fibrillation (05/29/23) Heart failure, unspecified (05/29/23) Subjective Subjective Patient is a 62-year-old gentleman admitted with progressive shortness of breath and assessment of acute congestive heart failure made admitted to monitored bed Patient seen this a.m. diagnostic data reviewed significant for potassium of 3.2 Objective Data Objective Data Vital Signs: Vital Signs Temp Pulse Resp BP Pulse Ox O2 Del Method O2 Flow Rate 99 F 91 24 H 125/92 H 98 Nasal Cannula 2 05/30/23 04:00 05/30/23 07:44 05/30/23 07:44 05/30/23 07:44 05/30/23 07:44 05/30/23 07:44 05/30/23 07:44 Oxygen Flow Rate (L/min) 2 Oxygen Delivery Method Nasal Cannula Weight: 99.2 kg Body Mass Index (BMI) 33.2 Intake & Output: Intake and Output for Last 24 Hours 05/28/23 05/29/23 05/30/23 23:59 23:59 23:59 Intake Total 965.31 / 980.31 456.00 / 456.00 Output Total 3450 / 3450 750 / 750 Balance -2484.69 / -2469.69 -294.00 / -294.00 Lab / Micro Data 05/30/23 06:09 05/30/23 06:09 Labs: Laboratory Results - last 24 hr 05/29/23 08:50: WBC 10.3, RBC 4.47 L, Hgb 14.4, Hct 45.3, MCV 101.3 H, MCH 32.2 H, MCHC 31.8 L, RDW Std Deviation 64.6 H, RDW Coeff of Doron 17.2 H, Plt Count 246, MPV 10.2, Immature Gran % (Auto) 0.300, Neut % (Auto) 54.2, Lymph % (Auto) 35.8, [place] % (Auto) 7.9, Eos % (Auto) 0.6, Baso % (Auto) 1.2 H, Absolute Neuts (auto) 5.6, Absolute Lymphs (auto) 3.68, Nucleated RBC % 0, D-Dimer Quant (PE/DVT) 1.27 H*, Sodium 137, Potassium 4.6, Chloride 109 H, Carbon Dioxide 21.0, Anion Gap 7, BUN 20 H, Creatinine 1.29, Estim Creat Clear Calc 56.71, Est GFR (MDRD) Af Amer 72, Est GFR (MDRD) Non-Af 60, BUN/Creatinine Ratio 15.5, Glucose 107 H, Calcium 8.9, Magnesium 2.0, Troponin I High Sens 42, B-Natriuretic Peptide 320.1 H 05/29/23 11:30: Troponin I High Sens 40 05/29/23 14:48: Troponin I High Sens 47 05/30/23 06:09: WBC 11.2 H, RBC 4.31 L, Hgb 13.4, Hct 42.4, MCV 98.4 H, MCH 31.1, MCHC 31.6 L, RDW Std Deviation 61.1 H, RDW Coeff of Doron 17.0 H, Plt Count 232, MPV 10.1, Immature Gran % (Auto) 0.300, Neut % (Auto) 43.0 L, Lymph % (Auto) 44.8 H, [place] % (Auto) 9.0, Eos % (Auto) 1.9, Baso % (Auto) 1.0, Absolute Neuts (auto) 4.8, Absolute Lymphs (auto) 5.00 H, Nucleated RBC % 0, Sodium 137, Potassium 3.2 L, Chloride 102, Carbon Dioxide 28.0, Anion Gap 7, BUN 23 H, Creatinine 1.41 H, Estim Creat Clear Calc 51.88, Est GFR (MDRD) Af Amer 65, Est GFR (MDRD) Non-Af 54 L, BUN/Creatinine Ratio 16.3, Glucose 100, Calcium 8.5, Phosphorus 2.9, Magnesium 2.1 Radiography Diagnostic Testing: Radiology Impression Chest CTA 05/29/23 10:05 IMPRESSION: 1. No evidence of pulmonary embolism. 2. Hazy bilateral groundglass opacities/infiltrates could reflect pulmonary edema. 3. Small bilateral pleural effusions larger on the right side. Electronically Signed: Mahin Looney MD at 10:45 EDT , Echocardiogram 05/29/23 13:45 Interpretation Summary The estimated ejection fraction is 30 %. Mild global right ventricular systolic dysfunction. The left atrium is severely enlarged. The right atrium is moderately enlarged. Moderately severe (3+) mitral valve insufficiency. Moderate (2+) tricuspid valve insufficiency. Right ventricular systolic pressure estimated to be 50 mmHg. Ordering Physician: Allan Bustamante Referring Physician: MARK PCP Performed By: Jaymie Workman RCS Physical Exam Narrative GENERAL: cooperative HEENT: Atraumatic; normocephalic EYES; Anicteric, Normal Conjunctiva NECK; supple, normal thyroid, RESPIRATORY: Diminished to auscultation CARDIOVASCULAR: Irregularly irregular GI: soft, normoactive bowel sounds, : No Renal angle tenderness; EXTREMITIES: edema, no clubbing, MUSCULOSKELETAL: no muscle wasting NEURO: Awake; no lateralizing signs. SKIN: No Rash PSYCH; Flat affect Assessment & Plan Assessment/Plan (1) CHF (congestive heart failure): (2) Atrial fibrillation with rapid ventricular response: PLAN: Plan Patient is a 62-year-old gentleman presenting with palpitations and shortness of breath 1. Paroxysmal A-fib ? Presented with A-fib with RVR admitted to a monitored bed started on Cardizem drip titrated to keep heart rate less than 100. As part of patient's management ordered serial cardiac enzymes and 2D echo. Patient is on systemic anticoagulation with apixaban did 2. Acute on chronic congestive heart failure with reduced ejection fraction ? Patient placed on Lasix in addition to strict input and output, daily weight, supplemental oxygen. Patient response to therapy being monitored with daily BMPs. 2D echo ordered for reassessment of ejection fraction ? 05/30/2020 adjusted diuretic dose given worsening kidney 3. Hypothyroidism ? Patient is on methimazole plan is to resume once home meds have been reconciled 4. Hypertension - Blood pressure controlled, home medications continued with dose adjustment as needed 5. Class I obesity with BMI of 33.7 ? Weight loss advised 6. Tobacco dependence - Counseled on cessation, offered nicotine patch for tobacco cravings 7. DVT prophylaxis ? Patient is on apixaban did continue 8. Hypokalemia ? Corrected per protocol, repeat BMP ordered for a.m. 9.Chronic kidney disease stage III ? Patient kidney function close to baseline however creatinine worsening with diuresis Lasix dose subsequently adjust 10. DVT prophylaxis ? On apixaban Time spent in the patient's overall evaluation,decision-making process, review of diagnostic data, adjustment of management, discussion with other providers, nursing nursing and ancillary staff involved in patient's care documentation, 50 Minutes Charges/Coding Visit Charges Inpatient E&M: 42948 [facility] Hosp L3
[2023-05-30] MEDS: Metoprolol Tartrate 100 MG Tablet PO (09:45)
[2023-05-30] MEDS: Lisinopril 5 MG Tablet PO (09:45)
[2023-05-30] MEDS: Potassium Chloride Oral Tablet 20 MEQ 40 MEQ PO (09:46)
[2023-05-30] MEDS: APIXABAN 5 MG TABLET PO ×2 (09:48→20:16)
--- NOTE | 2023-05-30 10:40 | CASEMGMT ---
VLAD ADHIKARI Face to Face with patient for initial transition planning/care coordination assessment. RN ZEYNEP introduced self and role at [facility]. Patient lying in bed, alert and oriented. Patient willing to participate in assessment and is able to answer all questions appropriately. Care providers, pharmacy, and demographics verified. Patient wishes to discharge home, denies need for home health at this time. Patient states he has no further needs or concerns at this time. CM to follow for discharge planning needs that may arise. PCP: none, PCP list provided Specialists: none Preferred Pharmacy: [facility] Insurance: [employer] Prescription Benefit: yes Living Will/HPOA: none LNOK: significant other Living Arrangements: Patient lives with significant other in a 2nd floor apartment. Patient is independent and able to ambulate stairs. Transportation: significant other DME/HHC: Patient denies DME in the home. No previous HHC. Will monitor for home oxygen, no preferences for DME Disposition Plan: Patient to discharge home with family support and follow-up plans in place. Bell PASTOR, RN, CM
--- NOTE | 2023-05-30 11:38 | NURSING ---
The cardizem drip is still infusing despite MAR end time. BP 121/72 and HR 76; titrated to 5 mg/hr at this time.
--- NOTE | 2023-05-30 12:21 | NURSING ---
Cardizem stopped at this time d/t hypotension- pt also reports nausea, lightheadedness, general tiredness, no pain. Has not been on BP meds for approx 3 weeks prior to admission. Cycling BP [id number] at this time to monitor closely. Instructed pt to get up w/ assistance.
[2023-05-30] MEDS: Ondansetron 4 MG/2 ML Vial IV (16:21)
[2023-05-30] MEDS: Mag Hydrox/Al Hydrox/Simeth 30 ML UDC PO (16:21)
[2023-05-30] MEDS: Albuterol 2.5 MG/3 ML VIAL.NEB. INHALATION (16:35)
--- NOTE | 2023-05-30 16:51 | RAD_ITS ---
INDICATION: Shortnes of breath EXAMINATION/TECHNIQUE: X-RAY - XR Chest 1 View COMPARISON: CT chest from February 26, 2023. Chest radiograph from November 26, 2022. FINDINGS: Support devices: None. Mild bilateral pulmonary edema. Emphysematous changes. No focal consolidations, effusions, or sizable pneumothorax. Mild cardiomegaly. No acute findings in the bones or soft tissues. RAD/Chest 1 View (Portable) IMPRESSION: Mild cardiomegaly and mild bilateral pulmonary edema. Electronically Signed: Harris Link DO at 8:10 EDT ,
--- NOTE | 2023-05-30 16:54 | EKG12_ITS ---
Test Reason : INCREASED SOB Blood Pressure : / mmHG Vent. Rate : 063 BPM Atrial Rate : 000 BPM P-R Int : 000 ms QRS Dur : 078 ms QT Int : 464 ms P-R-T Axes : 000 -56 -09 degrees QTc Int : 474 ms Atrial fibrillation Left axis deviation Abnormal ECG When compared with ECG of 29-MAY-2023 08:44, MANUAL COMPARISON REQUIRED, DATA IS UNCONFIRMED Confirmed by ANTONIO ALMEIDA, RONIT ([id number]), video effects editor JADE SWARTZ ([id number]) on 07/19/2023 10:28:37 AM Referred By: EMANUEL Confirmed By:RONTI ALVAREZ MD
[2023-05-30] MEDS: Potassium Chloride Oral Tablet 20 MEQ PO (17:52)
[2023-05-31] VITALS (11 sets, daily range): BP systolic 90–135; BP diastolic 67–79; PULSE 71–101; RESP 16–20; TEMP 36.4–36.8; O2SAT 86–98
[2023-05-31] MEDS: Mag Hydrox/Al Hydrox/Simeth 30 ML UDC PO (00:01)
[2023-05-31] MEDS: MELATONIN 3 MG TABLET PO ×2 (00:01→23:32)
[2023-05-31] MEDS: Ondansetron 4 MG/2 ML Vial IV (00:01)
[2023-05-31 04:54] LABS: Absolute Lymphocyte Count 5.09 X10^3/uL (0.83-4.51); Absolute Neutrophil Count 4.7 X10^3/uL (2.0-7.7); Basophil# 0.18 X10^3/uL; Basophil% 1.6 % (0-1); Eosinophil# 0.15 X10^3/uL; Eosinophils% 1.3 % (0-5); Hematocrit 44.7 % (40-54); Hemoglobin 14.1 g/dL (13.0-16.5); Lymphocyte # 5.09 X10^3/ul (0.83-4.51); Lymphocyte % 43.8 % (19-41); Mean Corp Hgb Conc 31.5 g/dL (32-36); Mean Corpuscular Hgb 31.6 pg (27.0-32.0); Mean Corpuscular Volume 100.2 fL (80-94); Mean Platelet Vol. 9.9 fl (6.2-12.0); Monocyte# 1.44 X10^3/uL; Monocyte% 12.4 % (0-10); NRBC Flagged by Analyzer 0 % (0-5); Neutrophil # 4.72 X10^3/uL (2.7-7.7); Neutrophil % 40.6 % (47-70); POSITIVE DIFFERENTIAL YES; Platelet Count 239 K/mm3 (150-450); RBC Distribution Width CV 17.4 % (11.6-14.6); RBC Distribution Width SD 62.6 fl (35.1-43.9); Red Blood Count 4.46 M/mm3 (4.6-6.2); White Blood Count 11.6 K/mm3 (4.4-11.0)
[2023-05-31 04:56] LABS: Differential Indicated SCAN CRITERIA MET
[2023-05-31 05:27] LABS: Anisocytosis 1+
[2023-05-31 05:30] LABS: Anion Gap 6 (5-15); BUN 35 mg/dL (7-18); BUN/Creat Ratio 12.4 RATIO (10-20); Calcium,Total 8.5 mg/dL (8.5-10.1); Chloride 100 mmol/L (98-107); Creatinine, Serum 2.83 mg/dL (0.70-1.30); EST Glomerular Filtration Rate 24 mL/min (>60); Est Glom Filt Rate - Afr Amer 29 mL/min (>60); Estimated Creatinine Clearance 25.85 ml/min; Glucose 92 mg/dL (74-106); Potassium 4.7 mmol/L (3.5-5.1); Sodium Level 137 mmol/L (136-145)
--- NOTE | 2023-05-31 08:11 | PN.HOSP_ITS ---
Reason for Visit Reason for Visit: Diagnoses Unspecified atrial fibrillation (05/29/23) Heart failure, unspecified (05/29/23) Subjective Subjective Patient evening dose of Lasix was held after he became relatively hypotensive. Did receive IV fluid after marked increase in his creatinine Objective Data Objective Data Vital Signs: Vital Signs Temp Pulse Resp BP Pulse Ox O2 Del Method O2 Flow Rate 98.2 F 76 20 H 93/76 96 Nasal Cannula 2 05/31/23 02:30 05/31/23 02:30 05/31/23 02:30 05/31/23 02:30 05/31/23 02:30 05/31/23 02:30 05/31/23 02:30 Oxygen Flow Rate (L/min) 2 Oxygen Delivery Method Nasal Cannula Weight: 99.2 kg Body Mass Index (BMI) 33.2 Intake & Output: Intake and Output for Last 24 Hours 05/29/23 05/30/23 05/31/23 23:59 23:59 23:59 Intake Total 965.31 / 980.31 488.75 / 488.75 Output Total 3450 / 3450 1850 / 1850 Balance -2484.69 / -2469.69 -1361.25 / -1361.25 Lab / Micro Data 05/31/23 04:35 05/31/23 04:35 Labs: Laboratory Results - last 24 hr 05/31/23 04:35: WBC 11.6 H, RBC 4.46 L, Hgb 14.1, Hct 44.7, MCV 100.2 H, MCH 31.6, MCHC 31.5 L, RDW Std Deviation 62.6 H, RDW Coeff of Doron 17.4 H, Plt Count 239, MPV 9.9, Immature Gran % (Auto) 0.300, Neut % (Auto) 40.6 L, Lymph % (Auto) 43.8 H, [place] % (Auto) 12.4 H, Eos % (Auto) 1.3, Baso % (Auto) 1.6 H, Absolute Neuts (auto) 4.7, Absolute Lymphs (auto) 5.09 H, Nucleated RBC % 0, Anisocytosis 1+, Sodium 137, Potassium 4.7, Chloride 100, Carbon Dioxide 31.0, Anion Gap 6, BUN 35 H, Creatinine 2.83 H, Estim Creat Clear Calc 25.85, Est GFR (MDRD) Af Amer 29 L, Est GFR (MDRD) Non-Af 24 L, BUN/Creatinine Ratio 12.4, Glucose 92, Calcium 8.5 Physical Exam Narrative GENERAL: cooperative HEENT: Atraumatic; normocephalic EYES; Anicteric, Normal Conjunctiva NECK; supple, normal thyroid, RESPIRATORY: Diminished to auscultation CARDIOVASCULAR: Irregularly irregular GI: soft, normoactive bowel sounds, : No Renal angle tenderness; EXTREMITIES: edema, no clubbing, MUSCULOSKELETAL: no muscle wasting NEURO: Awake; no lateralizing signs. SKIN: No Rash PSYCH; Flat affect Assessment & Plan Assessment/Plan (1) CHF (congestive heart failure): (2) Atrial fibrillation with rapid ventricular response: PLAN: Plan Patient is a 62-year-old gentleman presenting with palpitations and shortness of breath 1. Paroxysmal A-fib ? Presented with A-fib with RVR admitted to a monitored bed started on Cardizem drip titrated to keep heart rate less than 100. As part of patient's management ordered serial cardiac enzymes and 2D echo. Patient is on systemic anticoagulation with apixaban did continue 2. Acute on chronic congestive heart failure with reduced ejection fraction ? Patient placed on Lasix in addition to strict input and output, daily weight, supplemental oxygen. Patient response to therapy being monitored with daily BMPs. 2D echo ordered for reassessment of ejection fraction ? 05/30/2023 adjusted diuretic dose given worsening kidney ? 05/31/2023; Lasix held given patient significant hypotension as well as worsening of kidney function 3. Hypothyroidism ? Patient is on methimazole plan is to resume once home meds have been reconciled 4. Hypertension - Blood pressure controlled, home medications continued with dose adjustment as needed ? 05/31/2023; patient antihypertensives adjusted given his relatively low blood pressure. Patient was on metoprolol 100 mg twice daily decreased to 25 mg twice daily lisinopril was discontinued given his concomitant acute kidney injury 5. Class I obesity with BMI of 33.7 ? Weight loss advised 6. Tobacco dependence - Counseled on cessation, offered nicotine patch for tobacco cravings 7. DVT prophylaxis ? Patient is on apixaban did continue 8. Hypokalemia ? Corrected per protocol, repeat BMP ordered for a.m. 9.Chronic kidney disease stage III ? Patient kidney function close to baseline however creatinine worsening with diuresis Lasix dose subsequently adjust 10. Acute kidney injury ? Secondary to overdiuresis Lasix held resuscitated with IV fluid 11. DVT prophylaxis ? On apixaban Time spent in the patient's overall evaluation,decision-making process, review of diagnostic data, adjustment of management, discussion with other providers, nursing nursing and ancillary staff involved in patient's care documentation, 50 Minutes Charges/Coding Visit Charges Inpatient E&M: 03311 Subs Hosp L3
[2023-05-31] MEDS: APIXABAN 5 MG TABLET PO ×2 (10:17→21:25)
[2023-05-31] MEDS: Potassium Chloride Oral Tablet 20 MEQ PO (10:17)
[2023-05-31] MEDS: Metoprolol Tartrate 25 MG Tablet PO (21:25)
[2023-05-31] MEDS: guaiFENesin 10 ML UDC (200MG/10ML) 20 ML PO (23:32)
[2023-06-01 03:00] VITALS: BP 99/80; PULSE 89; RESP 16; TEMP 36.4; O2SAT 94
[2023-06-01 07:26] VITALS: O2SAT 94
[2023-06-01 07:57] LABS: Absolute Lymphocyte Count 5.54 X10^3/uL (0.83-4.51); Absolute Neutrophil Count 4.7 X10^3/uL (2.0-7.7); Basophil% 0.8 % (0-1); Eosinophil# 0.31 X10^3/uL; Eosinophils% 2.6 % (0-5); Hematocrit 42.6 % (40-54); Hemoglobin 13.4 g/dL (13.0-16.5); Lymphocyte # 5.54 X10^3/ul (0.83-4.51); Lymphocyte % 46.3 % (19-41); Mean Corp Hgb Conc 31.5 g/dL (32-36); Mean Corpuscular Hgb 31.8 pg (27.0-32.0); Mean Corpuscular Volume 100.9 fL (80-94); Mean Platelet Vol. 9.6 fl (6.2-12.0); Monocyte# 1.25 X10^3/uL; Monocyte% 10.5 % (0-10); NRBC Flagged by Analyzer 0 % (0-5); Neutrophil # 4.72 X10^3/uL (2.7-7.7); Neutrophil % 39.5 % (47-70); POSITIVE DIFFERENTIAL YES; POSITIVE MORPHOLOGY YES; Platelet Count 236 K/mm3 (150-450); RBC Distribution Width CV 17.1 % (11.6-14.6); RBC Distribution Width SD 62.4 fl (35.1-43.9); Red Blood Count 4.22 M/mm3 (4.6-6.2)
[2023-06-01 08:01] LABS: Differential Indicated SCAN CRITERIA MET
--- NOTE | 2023-06-01 08:31 | PCM.PN.HOSP ---
Reason for Visit Reason for Visit: Diagnoses Unspecified atrial fibrillation (05/29/23) Heart failure, unspecified (05/29/23) Subjective Subjective 2D echo obtained demonstrated EF of 30% with moderate global left ventricular systolic dysfunction Objective Data Objective Data Vital Signs: Vital Signs Temp Pulse Resp BP Pulse Ox O2 Del Method O2 Flow Rate 97.5 F L 89 16 99/80 94 Room Air 2 06/01/23 03:00 06/01/23 03:00 06/01/23 03:00 06/01/23 03:00 06/01/23 03:00 06/01/23 03:00 05/31/23 15:20 Oxygen Flow Rate (L/min) 2 Oxygen Delivery Method Room Air Weight: 99.2 kg Body Mass Index (BMI) 33.2 Intake & Output: Intake and Output for Last 24 Hours 05/30/23 05/31/23 06/01/23 23:59 23:59 23:59 Intake Total 488.75 / 488.75 1610 / 1610 600 / 600 Output Total 1850 / 1850 Balance -1361.25 / -1361.25 1610 / 1610 600 / 600 Lab / Micro Data 06/01/23 07:05 06/01/23 07:05 Labs: Laboratory Results - last 24 hr 06/01/23 07:05: WBC 12.0 H, RBC 4.22 L, Hgb 13.4, Hct 42.6, MCV 100.9 H, MCH 31.8, MCHC 31.5 L, RDW Std Deviation 62.4 H, RDW Coeff of Doron 17.1 H, Plt Count 236, MPV 9.6, Immature Gran % (Auto) 0.300, Neut % (Auto) 39.5 L, Lymph % (Auto) 46.3 H, [place] % (Auto) 10.5 H, Eos % (Auto) 2.6, Baso % (Auto) 0.8, Absolute Neuts (auto) 4.7, Absolute Lymphs (auto) 5.54 H, Nucleated RBC % 0 Physical Exam Narrative GENERAL: cooperative HEENT: Atraumatic; normocephalic EYES; Anicteric, Normal Conjunctiva NECK; supple, normal thyroid, RESPIRATORY: Diminished to auscultation CARDIOVASCULAR: Irregularly irregular GI: soft, normoactive bowel sounds, : No Renal angle tenderness; EXTREMITIES: edema, no clubbing, MUSCULOSKELETAL: no muscle wasting NEURO: Awake; no lateralizing signs. SKIN: No Rash PSYCH; Flat affect Assessment & Plan Assessment/Plan (1) CHF (congestive heart failure): (2) Atrial fibrillation with rapid ventricular response: PLAN: Plan Patient is a 62-year-old gentleman presenting with palpitations and shortness of breath 1. Paroxysmal A-fib ? Presented with A-fib with RVR admitted to a monitored bed started on Cardizem drip titrated to keep heart rate less than 100. As part of patient's management ordered serial cardiac enzymes and 2D echo. Patient is on systemic anticoagulation with apixaban did continue 2. Acute on chronic congestive heart failure with reduced ejection fraction ? Patient placed on Lasix in addition to strict input and output, daily weight, supplemental oxygen. Patient response to therapy being monitored with daily BMPs. 2D echo ordered for reassessment of ejection fraction ? 05/30/2023 adjusted diuretic dose given worsening kidney ? 05/31/2023; Lasix held given patient significant hypotension as well as worsening of kidney function -05/12/2023; Echo demonstrated EF of 30%. Case was discussed with Dr. Pastrana with cardiology patient will follow-up with cardiology as outpatient 3. Hypothyroidism ? Patient is on methimazole plan is to resume once home meds have been reconciled 4. Hypertension - Blood pressure controlled, home medications continued with dose adjustment as needed ? 05/31/2023; patient antihypertensives adjusted given his relatively low blood pressure. Patient was on metoprolol 100 mg twice daily decreased to 25 mg twice daily lisinopril was discontinued given his concomitant acute kidney injury 5. Class I obesity with BMI of 33.7 ? Weight loss advised 6. Tobacco dependence - Counseled on cessation, offered nicotine patch for tobacco cravings 7. DVT prophylaxis ? Patient is on apixaban did continue 8. Hypokalemia ? Corrected per protocol, repeat BMP ordered for a.m. 9.Chronic kidney disease stage III ? Patient kidney function close to baseline however creatinine worsening with diuresis Lasix dose subsequently adjust 10. Acute kidney injury ? Secondary to overdiuresis Lasix held resuscitated with IV fluid 11. DVT prophylaxis ? On apixaban Time spent in the patient's overall evaluation,decision-making process, review of diagnostic data, adjustment of management, discussion with other providers, nursing nursing and ancillary staff involved in patient's care documentation, 35 Minutes Charges/Coding Visit Charges Inpatient E&M: 61562 Subs Hosp L2
[2023-06-01 08:33] LABS: Anion Gap 7 (5-15); BUN 40 mg/dL (7-18); BUN/Creat Ratio 22.2 RATIO (10-20); Calcium,Total 8.2 mg/dL (8.5-10.1); Chloride 101 mmol/L (98-107); EST Glomerular Filtration Rate 41 mL/min (>60); Est Glom Filt Rate - Afr Amer 49 mL/min (>60); Estimated Creatinine Clearance 40.64 ml/min; Glucose 92 mg/dL (74-106); Potassium 4.5 mmol/L (3.5-5.1); Sodium Level 135 mmol/L (136-145)
[2023-06-01 09:40] VITALS: BP 137/92; PULSE 96; RESP 18; TEMP 36.6; O2SAT 92
[2023-06-01] MEDS: APIXABAN 5 MG TABLET PO (09:42)
[2023-06-01] MEDS: Potassium Chloride Oral Tablet 20 MEQ PO (09:42)
[2023-06-01 09:44] VITALS: BP 137/92; PULSE 96
[2023-06-01] MEDS: Metoprolol Tartrate 25 MG Tablet PO (09:44)
--- NOTE | 2023-06-01 10:35 | PCM.DC.SUM ---
Providers Date of Admission: 05/29/23 Date of Discharge: 06/01/23 Primary Care Physician: No Primary Care Phys Reason For Visit: CHF, AFIB Diagnosis Discharge Diagnosis (1) CHF (congestive heart failure): Status: Chronic Code(s): I50.9 - Heart failure, unspecified Qualifiers: Heart failure type: systolic Heart failure chronicity: acute on chronic Qualified Code(s): I50.23 - Acute on chronic systolic (congestive) heart failure (2) Atrial fibrillation with rapid ventricular response: Status: Acute Code(s): I48.91 - Unspecified atrial fibrillation Plan Patient is a 62-year-old gentleman presenting with palpitations and shortness of breath 1. Paroxysmal A-fib ? Presented with A-fib with RVR admitted to a monitored bed started on Cardizem drip titrated to keep heart rate less than 100. As part of patient's management ordered serial cardiac enzymes and 2D echo. Patient is on systemic anticoagulation with apixaban did continue 2. Acute on chronic congestive heart failure with reduced ejection fraction ? Patient placed on Lasix in addition to strict input and output, daily weight, supplemental oxygen. Patient response to therapy being monitored with daily BMPs. 2D echo ordered for reassessment of ejection fraction ? 05/30/2023 adjusted diuretic dose given worsening kidney ? 05/31/2023; Lasix held given patient significant hypotension as well as worsening of kidney function -05/12/2023; Echo demonstrated EF of 30%. Case was discussed with Dr. Pastrana with cardiology patient will follow-up with cardiology as outpatient 3. Hypertension - Blood pressure controlled, home medications continued with dose adjustment as needed ? 05/31/2023; patient antihypertensives adjusted given his relatively low blood pressure. Patient was on metoprolol 100 mg twice daily decreased to 25 mg twice daily lisinopril was discontinued given his concomitant acute kidney injury 4. Class I obesity with BMI of 33.7 ? Weight loss advised 5. Tobacco dependence - Counseled on cessation, offered nicotine patch for tobacco cravings 6. DVT prophylaxis ? Patient is on apixaban did continue 7. Hypokalemia ? Corrected per protocol, repeat BMP ordered for a.m. 8.Chronic kidney disease stage III ? Patient kidney function close to baseline however creatinine worsening with diuresis Lasix dose subsequently adjust 9. Acute kidney injury ? Secondary to overdiuresis Lasix held resuscitated with IV fluid Time spent in the patient's overall evaluation,decision-making process, review of diagnostic data, adjustment of management, discussion with other providers, nursing nursing and ancillary staff involved in patient's care documentation, 35 Minutes Medications at Discharge Home Medications apixaban 5 mg tablet (Eliquis) 5 mg PO BID unknown #60 tabs 01/31/23 furosemide 20 mg tablet (Lasix) 20 mg PO DAILY unknown #30 tabs 01/31/23 lisinopril 5 mg tablet 5 mg PO DAILY bp #30 tabs 01/31/23 metoprolol tartrate 25 mg tablet 25 mg PO BID #60 tabs 06/01/23 Hospital Course Procedures 2-D Echocardiogram Summary of Care Provided Minutes Spent on Discharge: 35 Physical Exam Narrative GENERAL: cooperative HEENT: Atraumatic; normocephalic EYES; Anicteric, Normal Conjunctiva NECK; supple, normal thyroid, RESPIRATORY: Diminished to auscultation CARDIOVASCULAR: Irregularly irregular GI: soft, normoactive bowel sounds, : No Renal angle tenderness; EXTREMITIES: edema, no clubbing, MUSCULOSKELETAL: no muscle wasting NEURO: Awake; no lateralizing signs. SKIN: No Rash PSYCH; Flat affect Weight / BMI Weight Weight: 99.2 kg Body Mass Index (BMI) 33.2 ABG / Lab / Microbiology Data 06/01/23 07:05 06/01/23 07:05 Laboratory: Laboratory Results - last 24 hr 06/01/23 07:05: WBC 12.0 H, RBC 4.22 L, Hgb 13.4, Hct 42.6, MCV 100.9 H, MCH 31.8, MCHC 31.5 L, RDW Std Deviation 62.4 H, RDW Coeff of Doron 17.1 H, Plt Count 236, MPV 9.6, Immature Gran % (Auto) 0.300, Neut % (Auto) 39.5 L, Lymph % (Auto) 46.3 H, [place] % (Auto) 10.5 H, Eos % (Auto) 2.6, Baso % (Auto) 0.8, Absolute Neuts (auto) 4.7, Absolute Lymphs (auto) 5.54 H, Nucleated RBC % 0, Differential Comment COMMENT, Sodium 135 L, Potassium 4.5, Chloride 101, Carbon Dioxide 27.0, Anion Gap 7, BUN 40 H, Creatinine 1.80 H, Estim Creat Clear Calc 40.64, Est GFR (MDRD) Af Amer 49 L, Est GFR (MDRD) Non-Af 41 L, BUN/Creatinine Ratio 22.2 H, Glucose 92, Calcium 8.2 L D/C Instructions Discharge Diet: Low fat / Low cholesterol, 8 Cup Fluid Restriction and 2000 mg Sodium Diet Discharge Activity: Return to Normal Activity Call your doctor if you observe: Fever of 101 or Higher, Shortness of breath, Fainting spells and Chest pain Meaningful Use Info Meaningful Use Diagnoses (Choose all that apply): CHF CHF JAJA/ARB ordered at discharge?: Yes Documented LVEF (%): 30 Discharge Plan Admission Admit Date/Time: 05/29/23 12:40 Attending Provider: Allan Bustamante Primary Care Provider: Care Physician,Monica Primary Discharge Orders/Prescriptions Prescriptions: New metoprolol tartrate 25 mg Tablet 25 mg PO BID Qty: 60 0RF Continued lisinopril 5 mg tablet 5 mg PO DAILY Qty: 30 12RF Eliquis 5 mg tablet 5 mg PO BID Qty: 60 12RF furosemide [Lasix] 20 mg tablet 20 mg PO DAILY Qty: 30 12RF Discontinued metoprolol tartrate 100 mg tablet 100 mg PO BID Qty: 60 12RF Referrals / Follow Up: Emmanuel Pastrana MD [Med Staff - Active Staff] - Within 2 Weeks Care Physician,No Primary [Primary Care Provider] - Within 2 Weeks Disposition Disposition (needs filled in before D/C Order can be placed): Home, Self Care Charges/Coding Visit Charges Inpatient E&M: 95238 Disch Hosp >30min
--- NOTE | 2023-06-01 11:16 | PHA.DC_ITS ---
Pharmacy [facility] has performed discharge medication reconciliation and counseling for this patient. The patient was counseled on the following discharge medications and changes in medications for homegoing were reviewed. 1. LOPRESSOR --> DOSE CHANGE FROM 100MG PO BID TO 25MG PO BID. The Reason for Use, instructions for use, and potential side effects were reviewed for all new medications. The patient's questions regarding all of their medications were answered. The patient demonstrated some understanding but would benefit from further education and reinforcement. The patient's discharge medication list was reviewed for discrepancies and discrepancies were resolved. Note: While counselling patient, pt admitted to throwing out all home medications. Contacted hospitalist to have other maintenance medications sent into his preferred pharmacy so he will not go without his medications. Stressed importance of making sure he is taking all medications as prescribed, pt verbalized understanding. Medications at Discharge Home Medications apixaban 5 mg tablet (Eliquis) 5 mg PO BID unknown #120 tabs 06/01/23 furosemide 40 mg tablet (Lasix) 40 mg PO DAILY #60 tabs 06/01/23 lisinopril 5 mg tablet 5 mg PO DAILY bp #60 tabs 06/01/23 metoprolol tartrate 25 mg tablet 25 mg PO BID #60 tabs 06/01/23
--- NOTE | 2023-06-01 12:14 | CASEMGMT ---
Patient has order for discharge. RN CN in to inquire if patient has needs at discharge, patient denies needs. RN CM encouraged patient to get established with PCP and to review PCP list provided previously. Patient voiced understanding. Patient had no further questions or concerns.
[2023-06-01 13:00] VITALS: BP 121/77; PULSE 84; RESP 18; TEMP 36.7
== END 2023-06-01 13:28 | disposition home or self-care (01) | DRG 201 ==
LOC: ED 12:40 → PCU 12:47
PROVIDERS: Admitting Provider Internal Medicine; Emergency Provider Emergency Medicine; Visit Provider Internal Medicine
DX: I48.0 Paroxysmal atrial fibrillation (principal); I50.23 Acute on chronic systolic (congestive) heart failure; N17.9 Acute kidney failure, unspecified; I13.0 Hypertensive heart and chronic kidney disease with heart failure and stage 1 through stage 4 chronic kidney disease, or unspecified chronic kidney disease; N18.30 Chronic kidney disease, stage 3 unspecified; E03.9 Hypothyroidism, unspecified; I95.2 Hypotension due to drugs; F17.210 Nicotine dependence, cigarettes, uncomplicated; E87.6 Hypokalemia; Z79.01 Long term (current) use of anticoagulants; Z66 Do not resuscitate
CPT/HCPCS: 36415; 71045; 71275; 80048; 83735; 83880; 84100; 84484; 85025; 85379; 93005; 93306; 94640; 94762; 99285; J7030; J7040; Q9967; A4216; J0153; J1940; J2405